=== PATIENT | male | born 1960 | race Caucasian/White ===

== ENCOUNTER → 2016-05-31 | Outpatient (CLI) | payer BC ==
[~2016-05-31] VITALS: Ht 182.9 cm; Wt 131.5 kg
[~2016-05-31] MED LIST: /WARF25TA PO; ACET50TA PO; ASPI1TAB24 PO; CIALIS PO; ENAL20TA PO; ENALAPRIL PO; GLIM4TAB PO; GLIMEPIRIDE PO; INVO300T PO; JANU100T PO; JANUVIA PO; LEVE1INJ5 SC; LEVEINJ SC; METF1000 PO; METFORMIN PO; NS 1,000 ML IV SCH; PERC7.5T12 PO; PRAV80TA PO; PRAVASTATIN PO; PROPOFOL 200 MG/20 ML VIAL As Ordered ONE
[2016-05-31 08:48] VITALS: BP 115/73
--- NOTE | 2016-05-31 08:55 | ROOR ---
Patient Name: Harpreet Jung Procedure Date: 05/31/2016 8:20 AM Date of : 1960 Age: 55 Room: [facility] Gender: Male Note Status: Finalized Procedure: Colonoscopy to Cecum + Cold Snare Polypectomy + Hemoclip Indications: Screening for colorectal malignant neoplasm Providers: Dony Downing MD Referring MD: ZAMZAM CUMMINGS JR, MD Requesting Provider: Medicines: Monitored Anesthesia Care Complications: No immediate complications. Procedure: Pre-Anesthesia Assessment: - The heart rate, respiratory rate, oxygen saturations, blood pressure, adequacy of pulmonary ventilation, and response to care were monitored throughout the procedure. The Colonoscope was introduced through the anus and advanced to the cecum, identified by appendiceal orifice and ileocecal valve. The colonoscopy was performed without difficulty. The patient tolerated the procedure well. The quality of the bowel preparation was good. Findings: The perianal and digital rectal examinations were normal. Non-bleeding internal hemorrhoids were found during retroflexion. The hemorrhoids were small and Grade I (internal hemorrhoids that do not prolapse). Scattered small-mouthed diverticula were found in the recto-sigmoid colon, sigmoid colon and descending colon. A small polyp was found at 60 cm proximal to the anus. The polyp was sessile. The polyp was removed with a cold snare. Resection and retrieval were complete. To prevent bleeding after the polypectomy, one hemostatic clip was successfully placed (MR conditional). There was no bleeding at the end of the procedure. The exam was otherwise without abnormality on direct and retroflexion views. Impression: - Non-bleeding internal hemorrhoids. - Diverticulosis in the recto-sigmoid colon, in the sigmoid colon and in the descending colon. - One small polyp at 60 cm proximal to the anus, removed with a cold snare. Resected and retrieved. Clip (MR conditional) was placed. - The examination was otherwise normal on direct and retroflexion views. - The exam was otherwise normal to the cecum. Recommendation: - Patient has a contact number available for emergencies. The signs and symptoms of potential delayed complications were discussed with the patient. Return to normal activities tomorrow. Written discharge instructions were provided to the patient. - High fiber diet. - Discharge patient to home. - Continue present medications. - Await pathology results. - Telephone GI clinic for pathology results in 1 week. - Repeat colonoscopy in 5 years for surveillance based on pathology results. - Return to referring physician. - The findings and recommendations were discussed with the patient's family. Dony Downing MD Dony Downing MD 05/31/2016 8:55:29 AM This report has been signed electronically. Number of Addenda: 0 Note Initiated On: 05/31/2016 8:20 AM Estimated Blood Loss: Estimated blood loss: none.
== END | disposition home or self-care (01) ==
LOC: M OPP 07:06
PROVIDERS: ATTEND Internal Medicine Gastroenterology
DX: Z12.11 Encounter for screening for malignant neoplasm of colon (principal); K64.0 First degree hemorrhoids; K57.30 Diverticulosis of large intestine without perforation or abscess without bleeding; D12.4 Benign neoplasm of descending colon; I10 Essential (primary) hypertension; E78.00 Pure hypercholesterolemia, unspecified; E11.9 Type 2 diabetes mellitus without complications; M19.90 Unspecified osteoarthritis, unspecified site; G47.30 Sleep apnea, unspecified; Z79.899 Other long term (current) drug therapy; Z79.82 Long term (current) use of aspirin; Z79.84 Long term (current) use of oral hypoglycemic drugs; Z88.1 Allergy status to other antibiotic agents

== ENCOUNTER 2016-11-04 08:33 | Emergency (ER) | payer BC ==
[~2016-11-04] VITALS: Ht 182.9 cm; Wt 130.4 kg
[~2016-11-04 08:33] MED LIST changes: +ASPI-161 PO; -ASPI1TAB24 PO; -METF1000 PO; +METF10004 PO; -NS 1,000 ML IV SCH; -PROPOFOL 200 MG/20 ML VIAL As Ordered ONE
[2016-11-04] MEDS ORDERED: CIAL20TA PO (09:00)
[2016-11-04] MEDS ORDERED: NS 500 ML IV ONE (09:00)
[2016-11-04] MEDS ORDERED: fentaNYL 100 MCG/2 ML INJECTION (J3010) IV ONE ×3 (09:00→12:30)
[2016-11-04] MEDS ORDERED: ISOVUE-370 76% 100ML VIAL (Q9967) As Ordered ONE (09:04)
[2016-11-04 09:21] LABS: BASO # 0.1 K/mm3 (0.0-0.2); BASO % 0.7 % (0.0-1.0); EOS # 0.4 K/mm3 (0.0-0.50); EOS % 3.9 % (0.0-3.0); LARGE UNSTAINED CELL # 0.4 K/mm3 (0.0-0.4); LARGE UNSTAINED CELL % 3.7 % (0.0-4.0); MEAN CORPUSCULAR HEMOGLOBIN 28.4 pg (27.0-33.0); MEAN CORPUSCULAR HGB CONC 34.5 g/dl (32.0-36.5); MEAN CORPUSCULAR VOLUME 82.3 fl (80.0-96.0); MONO # 0.5 K/mm3 (0.0-0.8); MONO % 5.7 % (0.0-5.0); NEUTROPHILS # 6.2 K/mm3 (1.8-7.7); PLATELET COUNT, AUTOMATED 268 k/mm3 (150-450); RED CELL DISTRIBUTION WIDTH 14.6 % (11.5-14.5); WHITE BLOOD COUNT 9.6 K/mm3 (4.0-10.0)
[2016-11-04 09:22] LABS: ADD MORPHOLOGY? NO
[2016-11-04 09:23] LABS: ALBUMIN 3.9 GM/DL (3.2-5.2); ALBUMIN/GLOBULIN RATIO 1.08 (1.00-1.93); ALKALINE PHOSPHATASE 46 U/L (45-117); ALT/SGPT 26 U/L (12-78); ANION GAP 10 MEQ/L (8-16); AST/SGOT 18 U/L (15-37); BILIRUBIN,DIRECT 0.1 MG/DL (0.0-0.2); BILIRUBIN,TOTAL 0.4 MG/DL (0.2-1.0); BLOOD UREA NITROGEN 21 MG/DL (7-18); CALCIUM LEVEL 8.9 MG/DL (8.5-10.1); CARBON DIOXIDE LEVEL 23 MEQ/L (21-32); CHLORIDE LEVEL 109 MEQ/L (98-107); CREATININE FOR GFR 0.98 MG/DL (0.70-1.30); GLOMERULAR FILTRATION RATE > 60.0 (>56); GLUCOSE, FASTING 227 MG/DL (70-105); POTASSIUM SERUM 4.8 MEQ/L (3.5-5.1); SODIUM LEVEL 142 MEQ/L (136-145); TOTAL PROTEIN 7.5 GM/DL (6.4-8.2)
[2016-11-04] MEDS ORDERED: LIDOCAINE 1% MDV 20ML VIAL IM ONE (10:15)
[2016-11-04] MEDS ORDERED: ceFAZolin SOD 1 GM in D5W MINI-BAG PLUS 50 ML IV ONE (10:30)
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
--- NOTE | 2016-11-04 11:24 | REP ---
LEFT KNEE: Two views of the left knee are performed. There is a total knee prosthesis. There is no fracture or dislocation. There is a moderate joint effusion. IMPRESSION: No fracture or dislocation. Moderate joint effusion. Signed by Kelvin Saldana MD 11/04/2016 11:57 A
--- NOTE | 2016-11-04 11:25 | REP ---
AP CHEST, SINGLE VIEW: There is no evidence of acute infiltrate. No pleural effusion is seen. The heart is normal in size. The mediastinal silhouette is unremarkable. The visualized osseous structures are intact. IMPRESSION: No acute pulmonary disease. Signed by Kelvin Saldana MD 11/04/2016 11:58 A
--- NOTE | 2016-11-04 11:25 | REP ---
PELVIS: AP view of the pelvis is performed. There is no fracture or dislocation. Hypertrophic spurring is seen at the left anterior inferior iliac spine at the insertion of the rectus femoris muscle. There are mild degenerative changes at the hips. IMPRESSION: No acute fracture or dislocation. Signed by Kelvin Saldana MD 11/04/2016 11:58 A
[2016-11-04] MEDS ORDERED: MORPHINE 4 MG/ML 1ML SYRINGE As Ordered ONE (11:48)
--- NOTE | 2016-11-04 11:49 | REP ---
LEFT ANKLE: Two views. HISTORY: Post reduction. FINDINGS: AP and lateral views of the left ankle are obtained in overlying splint. The ankle joint is been reduced. An obliquely oriented distal fibular fracture is seen much improved in alignment nearly anatomic. Ankle mortise appears intact. A posterior tibial malleolar chip fracture is seen on the lateral radiograph. Soft tissue swelling and irregularity is seen. Achilles calcaneal spurring noted. IMPRESSION: Ankle dislocation is reduced. Signed by Jaime Garcia MD 11/04/2016 11:53 A
[2016-11-04] MEDS ORDERED: MORPHINE 4 MG/ML 1ML SYRINGE IV ONE (12:00)
[2016-11-04] MEDS ORDERED: DERMABOND TOPICAL SKIN ADHESIVE TOP ONE (12:00)
[2016-11-04 13:22] VITALS: BP 107/55
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
== END 2016-11-04 13:23 | disposition short-term general hospital (02) ==
LOC: M ED 08:33 → EDBD 08:33 → M ED 13:23
DX: S82.892B Other fracture of left lower leg, initial encounter for open fracture type I or II (principal); S01.112A Laceration without foreign body of left eyelid and periocular area, initial encounter; S01.412A Laceration without foreign body of left cheek and temporomandibular area, initial encounter; V20.4XXA Motorcycle driver injured in collision with pedestrian or animal in traffic accident, initial encounter; Y92.410 Unspecified street and highway as the place of occurrence of the external cause; Y93.89 Activity, other specified; Y99.8 Other external cause status; E11.9 Type 2 diabetes mellitus without complications; I10 Essential (primary) hypertension; E78.5 Hyperlipidemia, unspecified; N52.9 Male erectile dysfunction, unspecified; Z79.899 Other long term (current) drug therapy; Z79.84 Long term (current) use of oral hypoglycemic drugs; Z79.82 Long term (current) use of aspirin; Z88.1 Allergy status to other antibiotic agents; F12.20 Cannabis dependence, uncomplicated
CPT/HCPCS: 12014; 27768; 70450; 70486; 71010; 71260; 72125; 72170; 73560; 73600; 73610; 73620; 74177; 80048; 80076; 81001; 83690; 85025; 85730; 96361; 96365; 96366; 96375; 96376; 99291; J0690; J3010; Q9967

== ENCOUNTER 2018-03-25 15:49 | Emergency (ER) | payer BC, MEDICAID, SELFPAY ==
[~2018-03-25] VITALS: Ht 182.9 cm; Wt 118.6 kg
[~2018-03-25 15:49] MED LIST changes: +CIAL20TA PO
[2018-03-25] MEDS ORDERED: INSUH10VL SC (15:58)
[2018-03-25] MEDS ORDERED: KETO10TAB PO (15:58)
[2018-03-25] MEDS ORDERED: NS 1,000 ML IV ONE (17:30)
[2018-03-25 17:54] LABS: BASO # 0.1 10^3/uL (0.0-0.2); BASO % 0.6 % (0.0-1.0); EOS % 0.1 % (0.0-3.0); HEMATOCRIT 42.7 % (42.0-52.0); HEMOGLOBIN 13.9 g/dl (13.5-17.5); LYMPH # 1.7 10^3/uL (1.5-4.5); LYMPH % 17.6 % (24.0-44.0); MEAN CORPUSCULAR HEMOGLOBIN 26.3 pg (27.0-33.0); MEAN CORPUSCULAR HGB CONC 32.6 g/dl (32.0-36.5); MEAN CORPUSCULAR VOLUME 80.7 fl (80.0-96.0); MONO # 0.9 10^3/uL (0.0-0.8); MONO % 9.6 % (0.0-5.0); NEUTROPHILS # 6.7 10^3/uL (1.8-7.7); NEUTROPHILS % 71.8 % (36.0-66.0); PLATELET COUNT, AUTOMATED 258 10^3/uL (150-450); RED BLOOD COUNT 5.29 10^6/uL (4.30-6.10); WHITE BLOOD COUNT 9.4 10^3/uL (4.0-10.0)
[2018-03-25 18:15] LABS: ERYTHROCYTE SEDIMENTATION RATE 13 mm/hr (0-20)
[2018-03-25 18:21] LABS: ALBUMIN 3.8 GM/DL (3.2-5.2); ALT/SGPT 20 U/L (12-78); BILIRUBIN,DIRECT 0.1 MG/DL (0.0-0.2); BILIRUBIN,TOTAL 0.5 MG/DL (0.2-1.0); BLOOD UREA NITROGEN 14 MG/DL (7-18); CALCIUM LEVEL 8.6 MG/DL (8.5-10.1); CARBON DIOXIDE LEVEL 24 MEQ/L (21-32); CHLORIDE LEVEL 101 MEQ/L (98-107); CREATININE FOR GFR 0.92 MG/DL (0.70-1.30); GLOMERULAR FILTRATION RATE > 60.0 (>56); GLUCOSE, FASTING 254 MG/DL (70-100); POTASSIUM SERUM 4.6 MEQ/L (3.5-5.1); SODIUM LEVEL 136 MEQ/L (136-145); TOTAL PROTEIN 8.1 GM/DL (6.4-8.2)
[2018-03-25] MEDS ORDERED: MORPHINE 4 MG/ML 1ML VIAL/SYRINGE (J2270) IV ONE (18:45)
[2018-03-25] MEDS ORDERED: PERCOCET 5MG/325MG TAB PO ONE (20:00)
--- NOTE | 2018-03-25 20:05 | REPVR ---
EXAM: XR Left Ankle Complete, 3 or more Views EXAM DATE/TIME: 03/25/2018 5:24 PM CLINICAL HISTORY: 57 years old, male; Pain; Ankle; Left; Additional info: Swelling/pain over hardware TECHNIQUE: XR Left ankle 3 or more views. COMPARISON: CR Ankle, Ap-Lat 11/04/2016 11:16 AM FINDINGS: There is generalized swelling of the ankle soft tissues with focal swelling of the lateral aspect of the ankle adjacent to a small fragment of metallic cortical plate located adjacent to the distal fibula metaphysis. There is an old healed internally fixed fracture deformity of the distal fibula. This is fixed by cortical plate and multiple screws. This instrumentation is unremarkable. There is severe arthritis of the ankle joint with subchondral bone lucencies within the talus dome and tibial plafond as well as the lateral malleolus articular surface. Differential diagnosis includes infectious arthritis, inflammatory arthritis as well as post traumatic arthritis. There are findings suggestive of a tiny ankle joint effusion. There are degenerative arthritic changes within the calcaneocuboid and joints of the midfoot. No acute fracture is identified. There are vascular calcifications within the soft tissues of the ankle and foot. IMPRESSION: 1. Focal soft tissue swelling within the lateral ankle adjacent to a fragment of metallic cortical plate which is located adjacent to the distal fibula metaphysis. 2. Old healed internally fixed fracture deformity of the distal fibula. 3. 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 Differential diagnosis includes infectious, inflammatory as well as posttraumatic arthritis. Electronically signed by: Catalino Campa On 03/25/2018 20:04:26 PM
[2018-03-25] MEDS ORDERED: PERC5TAB12 PO (20:44)
[2018-03-25] MEDS ORDERED: CLEO300C2 PO (20:44)
[2018-03-25 20:52] VITALS: BP 149/79
[2018-03-25] MEDS ORDERED: CLINDAMYCIN 150 MG CAP PO ONE (21:00)
[2018-03-25] MEDS ORDERED: OXYCODONE/APAP 5MG/325MG(BULK FOR ED) 1 TABLET PO ONE (21:00)
== END 2018-03-25 21:00 | disposition home or self-care (01) ==
LOC: M ED 15:49
DX: L03.116 Cellulitis of left lower limb (principal); M19.172 Post-traumatic osteoarthritis, left ankle and foot; T84.9XXA Unspecified complication of internal orthopedic prosthetic device, implant and graft, initial encounter; X58.XXXA Exposure to other specified factors, initial encounter; Y92.89 Other specified places as the place of occurrence of the external cause; E11.9 Type 2 diabetes mellitus without complications; I10 Essential (primary) hypertension; E78.5 Hyperlipidemia, unspecified; G47.33 Obstructive sleep apnea (adult) (pediatric); Z79.899 Other long term (current) drug therapy; Z79.82 Long term (current) use of aspirin; Z79.4 Long term (current) use of insulin; Z88.1 Allergy status to other antibiotic agents; Z87.891 Personal history of nicotine dependence
CPT/HCPCS: 36415; 73610; 80048; 80076; 83605; 85025; 85652; 86140; 87040; 96361; 96374; 99284; J2270

== ENCOUNTER → 2018-04-16 | Outpatient (REF) | payer MEDICAID ==
[~2018-04-16] MED LIST changes: +CLEO300C2 PO; +INSUH10VL SC; +KETO10TAB PO; +PERC5TAB12 PO
[2018-04-16 14:18] LABS: BASO # 0.1 10^3/uL (0.0-0.2); BASO % 0.6 % (0.0-1.0); HEMOGLOBIN 12.5 g/dl (13.5-17.5); LYMPH % 24.9 % (24.0-44.0); MEAN CORPUSCULAR HEMOGLOBIN 26.1 pg (27.0-33.0); MEAN CORPUSCULAR HGB CONC 31.3 g/dl (32.0-36.5); MEAN CORPUSCULAR VOLUME 83.5 fl (80.0-96.0); MONO # 0.7 10^3/uL (0.0-0.8); MONO % 8.8 % (0.0-5.0); NEUTROPHILS # 5.2 10^3/uL (1.8-7.7); NEUTROPHILS % 65.4 % (36.0-66.0); PLATELET COUNT, AUTOMATED 390 10^3/uL (150-450); RED BLOOD COUNT 4.79 10^6/uL (4.30-6.10)
[2018-04-16 14:34] LABS: ALBUMIN 3.5 GM/DL (3.2-5.2); ALT/SGPT 31 U/L (12-78); BILIRUBIN,TOTAL 0.2 MG/DL (0.2-1.0); BLOOD UREA NITROGEN 18 MG/DL (7-18); C REACTIVE PROTEIN QUANTITATIV 0.94 MG/DL (0.00-0.30); CALCIUM LEVEL 9.1 MG/DL (8.5-10.1); CARBON DIOXIDE LEVEL 26 MEQ/L (21-32); CHLORIDE LEVEL 108 MEQ/L (98-107); GLOMERULAR FILTRATION RATE > 60.0 (>56); GLUCOSE, FASTING 103 MG/DL (70-100); POTASSIUM SERUM 4.7 MEQ/L (3.5-5.1); SODIUM LEVEL 143 MEQ/L (136-145); TOTAL PROTEIN 7.1 GM/DL (6.4-8.2)
[2018-04-16 15:14] LABS: ERYTHROCYTE SEDIMENTATION RATE 56 mm/hr (0-20)
== END ==
LOC: M LAB REF 13:02
PROVIDERS: ATTEND Internal Medicine Infectious Disease
DX: T81.40XA Infection following a procedure, unspecified, initial encounter (principal); B96.89 Other specified bacterial agents as the cause of diseases classified elsewhere

== ENCOUNTER → 2018-04-23 | Outpatient (REF) | payer MEDICAID ==
[2018-04-23 14:23] LABS: BASO # 0.1 10^3/uL (0.0-0.2); BASO % 0.7 % (0.0-1.0); EOS % 0.3 % (0.0-3.0); HEMATOCRIT 40.7 % (42.0-52.0); HEMOGLOBIN 12.9 g/dl (13.5-17.5); LYMPH # 2.2 10^3/uL (1.5-4.5); LYMPH % 29.5 % (24.0-44.0); MEAN CORPUSCULAR HEMOGLOBIN 26.2 pg (27.0-33.0); MEAN CORPUSCULAR HGB CONC 31.7 g/dl (32.0-36.5); MEAN CORPUSCULAR VOLUME 82.6 fl (80.0-96.0); MONO # 0.5 10^3/uL (0.0-0.8); MONO % 6.8 % (0.0-5.0); NEUTROPHILS # 4.7 10^3/uL (1.8-7.7); NEUTROPHILS % 62.4 % (36.0-66.0); PLATELET COUNT, AUTOMATED 269 10^3/uL (150-450); RED BLOOD COUNT 4.93 10^6/uL (4.30-6.10); WHITE BLOOD COUNT 7.5 10^3/uL (4.0-10.0)
[2018-04-23 14:45] LABS: ALBUMIN 3.7 GM/DL (3.2-5.2); ALT/SGPT 30 U/L (12-78); BILIRUBIN,TOTAL 0.2 MG/DL (0.2-1.0); BLOOD UREA NITROGEN 18 MG/DL (7-18); CALCIUM LEVEL 8.6 MG/DL (8.5-10.1); CARBON DIOXIDE LEVEL 24 MEQ/L (21-32); CHLORIDE LEVEL 110 MEQ/L (98-107); CREATININE FOR GFR 0.94 MG/DL (0.70-1.30); GLOMERULAR FILTRATION RATE > 60.0 (>56); GLUCOSE, FASTING 153 MG/DL (70-100); POTASSIUM SERUM 4.5 MEQ/L (3.5-5.1); SODIUM LEVEL 140 MEQ/L (136-145); TOTAL PROTEIN 7.1 GM/DL (6.4-8.2)
[2018-04-23 14:46] LABS: ERYTHROCYTE SEDIMENTATION RATE 32 mm/hr (0-20)
== END ==
LOC: M LAB REF 13:24
PROVIDERS: ATTEND Internal Medicine Infectious Disease
DX: T81.40XA Infection following a procedure, unspecified, initial encounter (principal); B96.89 Other specified bacterial agents as the cause of diseases classified elsewhere

== ENCOUNTER → 2018-04-30 | Outpatient (REF) | payer MEDICAID ==
[2018-04-30 13:49] LABS: BASO # 0.1 10^3/uL (0.0-0.2); EOS % 0.1 % (0.0-3.0); HEMOGLOBIN 12.8 g/dl (13.5-17.5); LYMPH # 1.9 10^3/uL (1.5-4.5); LYMPH % 28.2 % (24.0-44.0); MEAN CORPUSCULAR HEMOGLOBIN 26.3 pg (27.0-33.0); MEAN CORPUSCULAR VOLUME 82.3 fl (80.0-96.0); MONO # 0.6 10^3/uL (0.0-0.8); MONO % 8.9 % (0.0-5.0); NEUTROPHILS # 4.2 10^3/uL (1.8-7.7); NEUTROPHILS % 61.4 % (36.0-66.0); PLATELET COUNT, AUTOMATED 221 10^3/uL (150-450); RED BLOOD COUNT 4.86 10^6/uL (4.30-6.10); WHITE BLOOD COUNT 6.9 10^3/uL (4.0-10.0)
[2018-04-30 14:08] LABS: ALBUMIN 3.7 GM/DL (3.2-5.2); ALT/SGPT 27 U/L (12-78); BILIRUBIN,TOTAL 0.2 MG/DL (0.2-1.0); BLOOD UREA NITROGEN 21 MG/DL (7-18); C REACTIVE PROTEIN QUANTITATIV 0.68 MG/DL (0.00-0.30); CALCIUM LEVEL 8.8 MG/DL (8.5-10.1); CARBON DIOXIDE LEVEL 24 MEQ/L (21-32); CHLORIDE LEVEL 107 MEQ/L (98-107); CREATININE FOR GFR 0.84 MG/DL (0.70-1.30); GLOMERULAR FILTRATION RATE > 60.0 (>56); GLUCOSE, FASTING 155 MG/DL (70-100); POTASSIUM SERUM 4.4 MEQ/L (3.5-5.1); SODIUM LEVEL 138 MEQ/L (136-145)
[2018-04-30 14:16] LABS: ERYTHROCYTE SEDIMENTATION RATE 25 mm/hr (0-20)
== END ==
LOC: M LAB REF 13:00
PROVIDERS: ATTEND Internal Medicine Infectious Disease
DX: B96.89 Other specified bacterial agents as the cause of diseases classified elsewhere (principal); T81.40XA Infection following a procedure, unspecified, initial encounter

== ENCOUNTER → 2018-05-07 | Outpatient (REF) | payer MEDICAID ==
[2018-05-07 15:41] LABS: BASO # 0.1 10^3/uL (0.0-0.2); HEMATOCRIT 40.6 % (42.0-52.0); HEMOGLOBIN 12.9 g/dl (13.5-17.5); LYMPH # 1.6 10^3/uL (1.5-4.5); MEAN CORPUSCULAR HEMOGLOBIN 26.3 pg (27.0-33.0); MEAN CORPUSCULAR HGB CONC 31.8 g/dl (32.0-36.5); MEAN CORPUSCULAR VOLUME 82.7 fl (80.0-96.0); MONO # 0.6 10^3/uL (0.0-0.8); MONO % 9.9 % (0.0-5.0); NEUTROPHILS % 63.9 % (36.0-66.0); PLATELET COUNT, AUTOMATED 225 10^3/uL (150-450); RED BLOOD COUNT 4.91 10^6/uL (4.30-6.10); WHITE BLOOD COUNT 6.2 10^3/uL (4.0-10.0)
[2018-05-07 16:02] LABS: ALBUMIN 3.7 GM/DL (3.2-5.2); ALT/SGPT 33 U/L (12-78); BILIRUBIN,TOTAL 0.4 MG/DL (0.2-1.0); BLOOD UREA NITROGEN 15 MG/DL (7-18); C REACTIVE PROTEIN QUANTITATIV 1.15 MG/DL (0.00-0.30); CALCIUM LEVEL 8.5 MG/DL (8.5-10.1); CARBON DIOXIDE LEVEL 25 MEQ/L (21-32); CHLORIDE LEVEL 108 MEQ/L (98-107); CREATININE FOR GFR 0.86 MG/DL (0.70-1.30); GLOMERULAR FILTRATION RATE > 60.0 (>56); GLUCOSE, FASTING 90 MG/DL (70-100); POTASSIUM SERUM 4.4 MEQ/L (3.5-5.1); SODIUM LEVEL 141 MEQ/L (136-145); TOTAL PROTEIN 7.3 GM/DL (6.4-8.2)
[2018-05-07 16:09] LABS: ERYTHROCYTE SEDIMENTATION RATE 20 mm/hr (0-20)
== END ==
LOC: M LAB REF 14:50
PROVIDERS: ATTEND Internal Medicine Infectious Disease
DX: T81.40XA Infection following a procedure, unspecified, initial encounter (principal); B96.89 Other specified bacterial agents as the cause of diseases classified elsewhere

== ENCOUNTER → 2019-05-28 | Outpatient (CLI) | payer OTHER ==
[~2019-05-28] MED LIST changes: -/WARF25TA PO; -ACET50TA PO; +COUM1TAB18 PO; -GLIM4TAB PO; +GLIM4TAB5 PO; +MAPA500T17 PO
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
== END ==
LOC: M PAIN 13:30
PROVIDERS: ATTEND Family Medicine
DX: M25.562 Pain in left knee (principal); M79.672 Pain in left foot; E11.9 Type 2 diabetes mellitus without complications; I10 Essential (primary) hypertension; Z79.82 Long term (current) use of aspirin; Z79.84 Long term (current) use of oral hypoglycemic drugs; Z79.899 Other long term (current) drug therapy; Z87.891 Personal history of nicotine dependence; Z88.8 Allergy status to other drugs, medicaments and biological substances

== ENCOUNTER → 2019-06-27 | Outpatient (CLI) | payer OTHER ==
--- NOTE | 2019-07-03 03:24 | ECWPNPC ---
PATIENT NAME: LIUDMILA BETANCOURT : 1960 GENDER: MALE VISIT DATE: 06/27/2019 DISCHARGE DATE: 06/27/19 1026 VISIT LOCKED DATE TIME: PHYSICIAN: JANIE CAMPBELL RESOURCE: JANIE CAMPBELL REASON FOR APPOINTMENT 1. LEFT KNEE AND FOOT PAIN, NEW MEDICATION HISTORY OF PRESENT ILLNESS HISTORY OF PRESENT ILLNESS: PAIN THE PATIENT DESCRIBES THE PAIN... 58-YEAR-OLD MALE IN FOR CHRONIC PAIN FOLLOW-UP. AT LAST CLINIC VISIT HE WAS STARTED ON TRAMADOL AND FEELS THIS MEDICATION WAS HELPFUL HOWEVER IT WAS NOT CARRYING HIM THROUGHOUT THE DAY. HE RATES HIS PAIN CURRENTLY AT A 4 OUT OF 10 ACHING AND STABBING. FALL RISK SCREENING: SCREENING :NO FALLS REPORTED IN THE LAST YEAR CURRENT MEDICATIONS TAKING METFORMIN HCL 1000 MG TABLET 1 TABLET WITH A MEAL ORALLY BID TAKING ASPIR-81 1 TAB ORALLY DAILY TAKING BASAGLAR KWIKPEN 100 UNIT/ML SOLUTION PEN-INJECTOR DIRECTED SUBCUTANEOUS TAKING ENALAPRIL MALEATE 20 MG TABLET 1 TABLET ORALLY ONCE A DAY TAKING PRAVASTATIN SODIUM 80 MG TABLET 1 TABLET ORALLY ONCE A DAY TAKING TRAMADOL HCL 50 MG TABLET 1 TABLET NEEDED ORALLY ONCE A DAY MEDICATION LIST REVIEWED AND RECONCILED WITH THE PATIENT PAST MEDICAL HISTORY DIABETIC HYPERLIPIDIMIA HYPERTENSION ALLERGIES CYPROHEPTADINE HCL: HIVES - ALLERGY SURGICAL HISTORY LEFT KNEE RECONSTRUCTION 02/1980 ARTHROSCOPIC REPAIRS, LEFT & RIGHT KNEE 1982,1989,1994 ARTHROSCOPIC REPAIRS WRIST 2009 RIGHT KNEE REPLACEMENT 2014 SCREWS REMOVED, LEFT KNEE 2018 REMOVAL OF PLATE AND SCREWS FROM LEFT ANKLE 2019 FAMILY HISTORY FATHER: MOTHER: 75 YRS SIBLINGS: ALIVE 2 BROTHER(S) . 3DAUGHTER(S) . 2 DAUGHTER HAVE THYROID. SOCIAL HISTORY GENERAL: TOBACCO USE ARE YOU A:FORMER SMOKER HOW LONG HAS IT BEEN SINCE YOU LAST SMOKED?> 10 YEARS SMOKING CESSATION INFORMATION GIVEN05/28/2019 LATEX QUESTIONNAIRE LATEX ALLERGY : HAVE YOU EVER DEVELOPED ANY TYPE OF REACTION AFTER HANDLING LATEX PRODUCTS SUCH RUBBER GLOVES, CONDOMS, DIAPHRAGMS, BALLOONS, SOCKS, OR UNDERWEAR?NO LATEX ALLERGY : HAVE YOU EVER DEVELOPED ANY TYPE OF REACTION DURING OR AFTER DENTAL APPOINTMENT, VAGINAL/RECTAL EXAMINATION, SURGICAL PROCEDURE, OR ANY OTHER EXPOSURE?NO DATE ASKED : 05/28/2019 LATEX RISK : HAVE YOU EVER HAD ANY DIFFICULTY BREATHING OR HIVES AFTER EATING OR HANDLING ANY FRUITS, OR VEGETABLES; SUCH KIWI, BANANAS, STONE FRUITS, OR CHESTNUTSNO LATEX RISK : DO YOU HAVE A PREVIOUS PERSONAL HISTORY OF MORE THAN NINE SURGERIES, SPINA BIFIDA, OR REPEATED CATHERIZATIONS? NO LATEX RISK : ARE YOU FREQUENTLY EXPOSED TO LATEX PRODUCTS IN YOUR OCCUPATION?NO ALCOHOL SCREENING DID YOU HAVE A DRINK CONTAINING ALCOHOL IN THE PAST YEAR?YES HOW MANY DRINKS DID YOU HAVE ON A TYPICAL DAY WHEN YOU WERE DRINKING IN THE PAST YEAR?1 OR 2 (0 POINTS) HOW OFTEN DID YOU HAVE A DRINK CONTAINING ALCOHOL IN THE PAST YEAR?MONTHLY OR LESS (1 POINT) POINTS1 INTERPRETATIONNEGATIVE RECREATIONAL DRUG USE DRUG USE?YES HOW OFTEN AND HOW MUCH? ONCE A MONTH, MARIJUANA CAFFEINE CAFFEINE USE?YES 2 CUP DAILY CONGREGATION [id number] FAITH LANGUAGE LANGUAGES SPOKEN:BELARUSIAN LEARNING BARRIERS / SPECIAL NEEDS CHANGE FROM LAST VISIT?NO BARRIERS TO LEARNING?NO HEARING IMPAIRED?NO VISION IMPAIRED?YES COGNITIVELY IMPAIRED?NO :CORRECTIVE LENSES READINESS TO LEARN?YES LEARNING PREFERENCES?NO LEARNING CAPABILITIES PRESENT?YES EMOTIONAL BARRIERS?NO SPECIAL DEVICES?YES :OTHER CRUTCHES PUBLIC ADMINISTRATION TEACHER NEEDED?NO DOMESTIC VIOLENCE DO YOU FEEL SAFE IN YOUR ENVIRONMENT?YES OCCUPATION: DISABLED. MARITAL STATUS: . OTHERS AT HOME: SPOUSE. NEW PATIENT PAIN DIARY PATIENT DESCRIBES PAIN :ACHING, HAVE IT ALL THE TIME, IT COMES AND GOES, STABBING FROM 0-10, WHAT LEVEL IS YOUR PAIN TODAY?4 PRECIPITATING FACTORS SITTING GIVES ACHING PAIN, PAIN COMES AND GOES. WALKING GIVES STABBING PAIN, PAIN IS CONSTANT. ALLEVIATING FACTORS NOTHING IMPACT ON FUNCTION YES PAIN CLINIC PFS, CLERGY, PUBLIC HEALTH REFERRALS PFS REFERRAL NEEDED?NO CLERGY REFERRAL NEEDED?NO PUBLIC HEALTH REFERRAL NEEDED?NO HAS THE PATIENT BEEN EDUCATED REGARDING HIS/HER PLAN OF CARE?YES HAS THE PATIENT BEEN EDUCATED REGARDING PAIN, THE RISK FOR PAIN, THE IMPORTANCE OF EFFECTIVE PAIN MANAGEMENT, AND THE PAIN ASSESSMENT PROCESS?YES ADVANCE DIRECTIVE ADVANCE DIRECTIVE DISCUSSED WITH PATIENT:YES PT. DAUGHTER MELISSA IS HIS HEALTH CARE PROXY [phone] HOSPITALIZATION/MAJOR DIAGNOSTIC PROCEDURE NOTED ABOVE REVIEW OF SYSTEMS REVIEWED BY: PROVIDER: CARMEN CAMPBELL TECHNICAL ADJUSTER-C . CONSTITUTIONAL: ANY CHANGE IN YOUR MEDICAL CONDITION? NO . CHILLS NO . FEVER NO . INFECTION: DO YOU HAVE NEW INFECTIONS? NO . DO YOU HAVE HISTORY OF MRSA? NO . MUSCULOSKELETAL: ANY NEW PATTERNS OF PAIN OR NUMBNESS? NO . GASTROENTEROLOGY: ANY NEW CHANGE IN BOWEL CONTROL? NO . GENITOURINARY: ANY NEW CHANGE IN BLADDER CONTROL? NO . IS THERE A CHANCE YOU COULD BE ? NO . HEMATOLOGY/LYMPH: DO YOU TAKE ANY BLOOD THINNERS? (FOR EXAMPLE- COUMADIN, PLAVIX, AGGRENOX, PLATEL, PRADAXA, OR XARELTO) NO . WHEN WAS YOUR LAST DOSE? DATE: TIME: . NEUROLOGY: HAVE YOU FALLEN IN THE PAST 12 MONTHS? NO . ANY NEW EXTREMITY NUMBNESS OR WEAKNESS? NO . CARDIOLOGY: DO YOU HAVE A PACEMAKER OR DEFIBRILLATOR? NO . RESPIRATORY: HAVE YOU BEEN SICK IN THE PAST WEEK? NO . FEVER NO . FLU LIKE SYMPTOMS? NO . COUGH NO . INTEGUMENTARY: DO YOU HAVE ANY RASHES OR OPEN SORES? YES, SORE TO LEFT KNEE, S/P OVEN DOOR SLAMMED ON KNEE . ALLERGIC/IMMUNO: ARE YOU ALLERGIC TO IV DYE? NO . ANY NEW ALLERGIES? NO . PSYCHIATRIC: DO YOU HAVE THOUGHTS OF HURTING YOURSELF OR SOMEONE ELSE? NO . ARE YOU ABUSED, NEGLECTED, OR IN AN UNSAFE ENVIRONMENT? NO . ENDOCRINOLOGY: ARE YOU DIABETIC? YES . OTHER: DO YOU NEED ANY PRESCRIPTIONS? NO . IF YES, PLEASE LIST: ____ . ANY NEW PROBLEMS WITH YOUR MEDICATIONS? NO . WHEN DID YOU LAST EAT? ____ . WHEN DID YOU LAST DRINK? ____ . WHAT DID YOU LAST DRINK? ____ . NAME OF PERSON DRIVING YOU HOME? ____ . DO YOU HAVE ANY OTHER QUESTIONS OR CONCERNS NO . VITAL SIGNS WT 266.6 LBS, HT 64 IN, BMI 45.76 INDEX, BP 118/90 MM HG, HR 103 /MIN, RR 18 /MIN, TEMP 96.1 F, OXYGEN SAT % 97%, SAFE IN ENV? (Y/N) Y, NA INITIALS AW 0931, REVIEWED BY: EM. EXAMINATION GENERAL EXAMINATION: GENERALNO ACUTE DISTRESS, WELL NOURISHED AND HYDRATED. PSYCHAPPROPRIATE MOOD AND AFFECT . LUNGS:CLEAR TO AUSCULTATION BILATERALLY, NO WHEEZES, RHONCHI, RALES. HEART:NO MURMURS, REGULAR RATE AND RHYTHM. ASSESSMENTS PAIN IN LEFT KNEE - M25.562 (PRIMARY) PAIN IN LEFT FOOT - M79.672 TREATMENT PAIN IN LEFT KNEE CLINICAL NOTES: 58-YEAR-OLD MALE IN FOR CHRONIC PAIN FOLLOW-UP. GIVEN PRESENTING SYMPTOMS AND RESULTS OF PHYSICAL EXAMINATION RECOMMENDED INCREASING TRAMADOL TO 2 TABS DAILY NEEDED FOR PAIN WITH FOLLOW-UP IN 2 MONTHS TO DETERMINE EFFICACY OF TREATMENT. PATIENT HAS EXPRESSED UNDERSTANDING OF AND WAS IN AGREEMENT WITH TREATMENT PLAN. GIVEN TIME TO ASK QUESTIONS AND EXPRESS CONCERNS., ISTOP REGISTRY REVIEWED AND DEMONSTRATES COMPLLIANCE. (REF # [id number]) BRINGS IN MEDICATIONS WHICH IS APPROPRIATE FOR WHAT WAS DISPENSED. RECENT URINE TOXICOLOGY REVIEWED. NO UNAUTHORIZED MEDICATIONS. NO ILLICIT SUBSTANCES AND PRESCRIBED MEDICATIONS WERE PRESENT. PROCEDURE CODES FA211 ESTABILISHED PATIENT [facility] CHARGE DISPOSITION & COMMUNICATION FOLLOW UP 2 MONTHS (REASON: LEFT KNEE AND FOOT PAIN) ELECTRONICALLY SIGNED BY FALGUNI BARR ON 07/02/2019 AT 08:44 AM EDT DISCLAIMER : THIS IS A VISIT SUMMARY EXTRACTED FROM THE [employer] CHART. IT IS NOT A COPY OF THE [employer] PROGRESS NOTE. TOÑITO
== END ==
LOC: M PAIN 09:30
PROVIDERS: ATTEND Family Medicine
DX: M25.562 Pain in left knee (principal); M79.672 Pain in left foot; G89.29 Other chronic pain; E11.9 Type 2 diabetes mellitus without complications; E78.5 Hyperlipidemia, unspecified; I10 Essential (primary) hypertension; Z96.651 Presence of right artificial knee joint; Z87.891 Personal history of nicotine dependence; Z88.8 Allergy status to other drugs, medicaments and biological substances; E66.01 Morbid (severe) obesity due to excess calories; Z68.42 Body mass index [BMI] 45.0-49.9, adult; Z79.82 Long term (current) use of aspirin; Z79.4 Long term (current) use of insulin; Z79.899 Other long term (current) drug therapy

== ENCOUNTER → 2019-07-30 | Outpatient (REF) | payer OTHER ==
[2019-07-30 13:34] LABS: PERCENT SATURATION 32.8 % (19.7-50.0)
[2019-08-01 06:42] LABS: IGASUB2 <3.5 mg/dL (73.2-301.2); IGASUB3 <0.5 mg/dL (13.4-97.9); IgA SERUM (part of Subclasses) < 5 mg/dL (90-386); TISSUE TRANSGLUTAMINASE IgA <2 U/mL (0-3)
== END ==
LOC: M LAB REF 12:21
PROVIDERS: ATTEND Internal Medicine
DX: E11.40 Type 2 diabetes mellitus with diabetic neuropathy, unspecified (principal)

== ENCOUNTER → 2019-08-31 | Outpatient (CLI) | payer OTHER ==
[~2019-08-31] MED LIST changes: +BASA100I SC; +PRAV80TA2 PO; +TRAM50TA2 PO
== END ==
LOC: M LABSMTC 08:56
PROVIDERS: ATTEND Anesthesiology
DX: Z11.59 Encounter for screening for other viral diseases (principal)
CPT/HCPCS: C9803; U0003

== ENCOUNTER 2019-09-03 10:57 | Day surgery (SDC) | payer OTHER ==
[~2019-09-03] VITALS: Ht 182.9 cm; Wt 129.7 kg
[~2019-09-03 10:57] MED LIST changes: +LIDOCAINE 2% 100MG/5ML SDV (FOR ANES.) As Ordered ONE; +NS 1,000 ML IV ONE; +propofoL 200 MG/20 ML VIAL As Ordered ONE
[2019-09-03] MEDS ORDERED: PHENYLephrine HCL 500 MCG/5 ML (100MCG/ML) SYRINGE (J2370) As Ordered ONE (12:37)
[2019-09-03] MEDS ORDERED: propofoL 200 MG/20 ML VIAL As Ordered ONE (12:41)
--- NOTE | 2019-09-03 12:59 | ROOR ---
Patient Name: Harpreet Jung Procedure Date: 09/03/2019 12:07 PM Date of : 1960 Age: 58 Room: [facility] Gender: Male Note Status: Finalized Procedure: Colonoscopy Indications: Change in bowel habits Providers: Pola Gandhi MD Referring MD: ZAMZAM CUMMINGS JR, MD Requesting Provider: Medicines: Monitored Anesthesia Care Complications: No immediate complications. Procedure: Pre-Anesthesia Assessment: - Prior to the procedure, a History and Physical was performed, and patient medications and allergies were reviewed. The patient is competent. The risks and benefits of the procedure and the sedation options and risks were discussed with the patient. All questions were answered and informed consent was obtained. Patient identification and proposed procedure were verified by the physician, the nurse and the anesthesiologist in the procedure room. Mental Status Examination: alert and oriented. Airway Examination: normal oropharyngeal airway and neck mobility. Respiratory Examination: clear to auscultation. CV Examination: normal. Prophylactic Antibiotics: The patient does not require prophylactic antibiotics. Prior Anticoagulants: The patient has taken no previous anticoagulant or antiplatelet agents. ASA Grade Assessment: II - A patient with mild systemic disease. After reviewing the risks and benefits, the patient was deemed in satisfactory condition to undergo the procedure. The anesthesia plan was to use monitored anesthesia care (MAC). Immediately prior to administration of medications, the patient was re-assessed for adequacy to receive sedatives. The heart rate, respiratory rate, oxygen saturations, blood pressure, adequacy of pulmonary ventilation, and response to care were monitored throughout the procedure. The physical status of the patient was re-assessed after the procedure. The Colonoscope was introduced through the anus and advanced to the terminal ileum, with identification of the appendiceal orifice and IC valve. The colonoscopy was performed without difficulty. The patient tolerated the procedure well. The quality of the bowel preparation was good. The terminal ileum, ileocecal valve, appendiceal orifice, and rectum were photographed. Scope insertion time was 3 minutes. Scope withdrawal time was 9 minutes. The total duration of the procedure was 12 minutes. Findings: The perianal and digital rectal examinations were normal. The terminal ileum appeared normal. A 15 mm polyp was found in the ascending colon. The polyp was sessile. The polyp was removed with a hot snare. Resection and retrieval were complete. Verification of patient identification for the specimen was done by the physician and nurse using the patient's name, date and medical record number. Estimated blood loss was minimal. Multiple small and large-mouthed diverticula were found from sigmoid to descending colon. There was no evidence of diverticular bleeding. Non-bleeding external and internal hemorrhoids were found during retroflexion. The hemorrhoids were medium-sized. Normal mucosa was found in the entire colon. Biopsies for histology were taken with a cold forceps from the right colon, left colon and rectosigmoid colon for evaluation of microscopic colitis. Impression: - The examined portion of the ileum was normal. - One 15 mm polyp in the ascending colon, removed with a hot snare. Resected and retrieved. - Moderate diverticulosis from sigmoid to descending colon. There was no evidence of diverticular bleeding. - Non-bleeding external and internal hemorrhoids. - Normal mucosa in the entire examined colon. Biopsied. Recommendation: - Patient has a contact number available for emergencies. The signs and symptoms of potential delayed complications were discussed with the patient. Return to normal activities tomorrow. Written discharge instructions were provided to the patient. - High fiber diet. - Continue present medications. - Use fiber, for example Citrucel, Fibercon, Konsyl or Metamucil. - Await pathology results. - Repeat colonoscopy in 3 - 5 years for surveillance based on pathology results. - Telephone GI clinic for pathology results in 2 weeks. - Return to primary care physician. Pola Gandhi MD Pola Gandhi MD 09/03/2019 12:59:05 PM Electronically signed by Pola Gandhi MD Number of Addenda: 0 Note Initiated On: 09/03/2019 12:07 PM Estimated Blood Loss: Estimated blood loss was minimal.
[2019-09-03 13:05] VITALS: BP 110/70
== END 2019-09-03 13:30 | disposition home or self-care (01) ==
LOC: M OPP 10:57
PROVIDERS: ATTEND Internal Medicine Gastroenterology
DX: K63.5 Polyp of colon (principal); K64.8 Other hemorrhoids; K57.30 Diverticulosis of large intestine without perforation or abscess without bleeding; R19.7 Diarrhea, unspecified; I10 Essential (primary) hypertension; E11.9 Type 2 diabetes mellitus without complications; Z79.4 Long term (current) use of insulin; Z79.82 Long term (current) use of aspirin; Z79.891 Long term (current) use of opiate analgesic; Z79.899 Other long term (current) drug therapy; Z88.1 Allergy status to other antibiotic agents; Z87.891 Personal history of nicotine dependence
CPT/HCPCS: 45380; 45385; 88305; J2370

== ENCOUNTER → 2019-09-09 | Outpatient (CLI) | payer OTHER ==
[~2019-09-09] MED LIST changes: -LIDOCAINE 2% 100MG/5ML SDV (FOR ANES.) As Ordered ONE; -NS 1,000 ML IV ONE; -propofoL 200 MG/20 ML VIAL As Ordered ONE
--- NOTE | 2019-09-11 04:36 | ECWPNPC ---
PATIENT NAME: LIUDMILA BETANCOURT : 1960 GENDER: MALE VISIT DATE: 09/09/2019 DISCHARGE DATE: 09/09/19 1413 VISIT LOCKED DATE TIME: PHYSICIAN: JANIE CAMPBELL RESOURCE: JANIE CAMPBELL REASON FOR APPOINTMENT 1. LEFT KNEE AND FOOT PAIN HISTORY OF PRESENT ILLNESS GENERAL: - 58-YEAR-OLD MALE IN FOR CHRONIC PAIN FOLLOW-UP. AT LAST CLINIC VISIT PATIENT'S TRAMADOL WAS INCREASED TO TWICE A DAY DOSING AND HE FEELS THIS WAS EXTREMELY HELPFUL ESPECIALLY WITH REGARDS TO HIS SLEEP. HE RATES HIS PAIN CURRENTLY AT A 7 OUT OF 10 AND DESCRIBES IT AN ACHING AND/OR SHOCKING FEELING. THE MEDICATIONS ARE WORKING WELL AND DENIES MED SIDE EFFECTS AT THIS TIME. FALL RISK SCREENING: SCREENING :NO FALLS REPORTED IN THE LAST YEAR PAIN SCREENING: PATIENT HAS A COMPLAINT OF ACUTE OR CHRONIC PAIN :YES LOCATION OF PAIN:KNEES, FEET LEFT INTENSITY OF PAIN (SCALE OF 1 TO 10):7 WHAT DOES YOUR PAIN FEEL LIKE:ACHING SHOCKING DURATION:CONTINOUS, CONSTANT, ALL DAY PAIN IS INCREASED BY:ACTIVITIES PAIN IS DECREASED BY:USE OF PAIN MEDICATIONS PAIN HAS INTERFERED WITH THE FOLLOWING:MOOD, WALKING ABILITY, HOUSEWORK, RELATIONSHIP WITH OTHERS, ENJOYMENT OF LIFE PLAN/GOALS/TREATMENT/INTERVENTION/FOLLOW UP:SEE PLAN NURSING NOTE: -. PAIN CENTER INTAKE QUESTIONS: DO YOU HAVE A HISTORY OF MRSA? :NO DO YOU TAKE A BLOOD THINNERS? :NO DO YOU HAVE ANY BLEEDING DISORDERS? :NO ANY NEW NUMBNESS OR WEAKNESS IN YOUR LEGS OR ARMS? :NO ANY PACEMAKER,DEFIBRILLATOR, OR DORSAL COLUMN STIMULATOR? :NO DO YOU HAVE ANY RASHES OR OPEN SORES? :NO ARE YOU ALLERGIC TO IV DYE? :NO ARE YOU DIABETIC? :YES ANY NEW PROBLEMS WITH YOUR MEDICATIONS? :NO HAVE YOU RECEIVED A VACCINE IN THE PAST 30 DAYS? :NO DO YOU PLAN TO RECEIVE A VACCINE IN THE NEXT 21 DAYS? :NO DO YOU NEED ANY PRESCRIPTION? :YES TRAMADOL DO YOU TAKE ANY IMMUNOSUPPRESSIVE MEDICATIONS? :NO IS THERE A CHANCE YOU COULD BE ? :NO ARE YOU BREAST FEEDING? :NO CURRENT MEDICATIONS TAKING METFORMIN HCL 1000 MG TABLET 1 TABLET WITH A MEAL ORALLY BID TAKING ASPIR-81 1 TAB ORALLY DAILY TAKING BASAGLAR KWIKPEN 100 UNIT/ML SOLUTION PEN-INJECTOR DIRECTED SUBCUTANEOUS TAKING ENALAPRIL MALEATE 20 MG TABLET 1 TABLET ORALLY ONCE A DAY TAKING PRAVASTATIN SODIUM 80 MG TABLET 1 TABLET ORALLY ONCE A DAY TAKING TRAMADOL HCL 50 MG TABLET 1 TABLET NEEDED ORALLY BID MEDICATION LIST REVIEWED AND RECONCILED WITH THE PATIENT PAST MEDICAL HISTORY DIABETIC HYPERLIPIDIMIA HYPERTENSION ALLERGIES CYPROHEPTADINE HCL: HIVES - ALLERGY SURGICAL HISTORY LEFT KNEE RECONSTRUCTION 02/1980 ARTHROSCOPIC REPAIRS, LEFT & RIGHT KNEE 1982,1989,1994 ARTHROSCOPIC REPAIRS WRIST 2010 RIGHT KNEE REPLACEMENT 2015 SCREWS REMOVED, LEFT KNEE 2018 REMOVAL OF PLATE AND SCREWS FROM LEFT ANKLE 2019 FAMILY HISTORY FATHER: MOTHER: 75 YRS SIBLINGS: ALIVE 2 BROTHER(S) . 3DAUGHTER(S) . 2 DAUGHTER HAVE THYROID. SOCIAL HISTORY GENERAL: TOBACCO USE ARE YOU A:FORMER SMOKER HOW LONG HAS IT BEEN SINCE YOU LAST SMOKED?> 10 YEARS SMOKING CESSATION INFORMATION GIVEN05/28/2019 LATEX QUESTIONNAIRE LATEX ALLERGY : HAVE YOU EVER DEVELOPED ANY TYPE OF REACTION AFTER HANDLING LATEX PRODUCTS SUCH RUBBER GLOVES, CONDOMS, DIAPHRAGMS, BALLOONS, SOCKS, OR UNDERWEAR?NO LATEX ALLERGY : HAVE YOU EVER DEVELOPED ANY TYPE OF REACTION DURING OR AFTER DENTAL APPOINTMENT, VAGINAL/RECTAL EXAMINATION, SURGICAL PROCEDURE, OR ANY OTHER EXPOSURE?NO LATEX RISK : HAVE YOU EVER HAD ANY DIFFICULTY BREATHING OR HIVES AFTER EATING OR HANDLING ANY FRUITS, OR VEGETABLES; SUCH KIWI, BANANAS, STONE FRUITS, OR CHESTNUTSNO LATEX RISK : DO YOU HAVE A PREVIOUS PERSONAL HISTORY OF MORE THAN NINE SURGERIES, SPINA BIFIDA, OR REPEATED CATHERIZATIONS? NO LATEX RISK : ARE YOU FREQUENTLY EXPOSED TO LATEX PRODUCTS IN YOUR OCCUPATION?NO DATE ASKED : 09/09/2019 ALCOHOL SCREENING DID YOU HAVE A DRINK CONTAINING ALCOHOL IN THE PAST YEAR?YES HOW MANY DRINKS DID YOU HAVE ON A TYPICAL DAY WHEN YOU WERE DRINKING IN THE PAST YEAR?1 OR 2 (0 POINTS) HOW OFTEN DID YOU HAVE A DRINK CONTAINING ALCOHOL IN THE PAST YEAR?MONTHLY OR LESS (1 POINT) POINTS1 INTERPRETATIONNEGATIVE RECREATIONAL DRUG USE DRUG USE?YES HOW OFTEN AND HOW MUCH? ONCE A MONTH, MARIJUANA CAFFEINE CAFFEINE USE?YES 2 CUP DAILY SABIANIST [id number] FAITH LANGUAGE LANGUAGES SPOKEN:ROMANSH LEARNING BARRIERS / SPECIAL NEEDS CHANGE FROM LAST VISIT?NO BARRIERS TO LEARNING?NO HEARING IMPAIRED?NO VISION IMPAIRED?YES COGNITIVELY IMPAIRED?NO :CORRECTIVE LENSES READINESS TO LEARN?YES LEARNING PREFERENCES?NO LEARNING CAPABILITIES PRESENT?YES EMOTIONAL BARRIERS?NO SPECIAL DEVICES?YES :OTHER CRUTCHES VAMP LINER NEEDED?NO DOMESTIC VIOLENCE DO YOU FEEL SAFE IN YOUR ENVIRONMENT?YES OCCUPATION: DISABLED. MARITAL STATUS: . OTHERS AT HOME: SPOUSE. NEW PATIENT PAIN DIARY PATIENT DESCRIBES PAIN :ACHING, HAVE IT ALL THE TIME, IT COMES AND GOES, STABBING FROM 0-10, WHAT LEVEL IS YOUR PAIN TODAY?4 PRECIPITATING FACTORS SITTING GIVES ACHING PAIN, PAIN COMES AND GOES. WALKING GIVES STABBING PAIN, PAIN IS CONSTANT. ALLEVIATING FACTORS NOTHING IMPACT ON FUNCTION YES PAIN CLINIC PFS, CLERGY, PUBLIC HEALTH REFERRALS PFS REFERRAL NEEDED?NO CLERGY REFERRAL NEEDED?NO PUBLIC HEALTH REFERRAL NEEDED?NO HAS THE PATIENT BEEN EDUCATED REGARDING HIS/HER PLAN OF CARE?YES HAS THE PATIENT BEEN EDUCATED REGARDING PAIN, THE RISK FOR PAIN, THE IMPORTANCE OF EFFECTIVE PAIN MANAGEMENT, AND THE PAIN ASSESSMENT PROCESS?YES ADVANCE DIRECTIVE ADVANCE DIRECTIVE DISCUSSED WITH PATIENT:YES PT. DAUGHTER MELISSA IS HIS HEALTH CARE PROXY [phone] HOSPITALIZATION/MAJOR DIAGNOSTIC PROCEDURE NOTED ABOVE REVIEW OF SYSTEMS CONSTITUTIONAL: ANY RECENT FEVER NO . CHILLS NO . WEIGHT CHANGE OF UNKNOWN REASONS NO . GASTROENTEROLOGY: NEW UNEXPLAINABLE CHANGES IN BOWEL CONTROL NO . CONSTIPATION NO . GENITOURINARY: ANY NEW CHANGE IN BLADDER CONTROL? NO . NEUROLOGY: NEW ONSET DIZZINESS OR NEUROLOGICAL CHANGES NOT MENTIONED NO . NEW NUMBNESS OR PAIN PATTERNS NOT MENTIONED AND PERTINENT TO TODAY'S VISIT NO . CARDIOLOGY: NEW CHEST PRESSURE NO . NEW CHEST PAIN NO . RESPIRATORY: UNEXPLAINABLE COUGH NO . NEW SHORTNESS OF BREATH NO . VITAL SIGNS WT 288.2 LBS, HT 64 IN, BMI 49.46 INDEX, BP 177/83 MM HG, HR 81 /MIN, RR 18 /MIN, TEMP 97.4 F, OXYGEN SAT % 97%, SAFE IN ENV? 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 EXAMINATION GENERAL EXAMINATION: GENERALNO ACUTE DISTRESS, WELL NOURISHED AND HYDRATED. PSYCHAPPROPRIATE MOOD AND AFFECT . LUNGS:CLEAR TO AUSCULTATION BILATERALLY, NO WHEEZES, RHONCHI, RALES. HEART:NO MURMURS, REGULAR RATE AND RHYTHM. ASSESSMENTS PAIN IN LEFT KNEE - M25.562 (PRIMARY) PAIN IN LEFT FOOT - M79.672 TREATMENT PAIN IN LEFT KNEE REFILL TRAMADOL HCL TABLET, 50 MG, 1 TABLET NEEDED, ORALLY, BID NEEDED CODE D MEDICATION CHRONIC PAIN OKAY FOR 90 DAY FILL, 90 DAYS, 180 CLINICAL NOTES: 58-YEAR-OLD MALE IN FOR CHRONIC PAIN FOLLOW-UP. GIVEN PRESENTING SYMPTOMS RECOMMENDED CONTINUATION OF CURRENT MEDICATION REGIMEN WITH FOLLOW-UP IN 3 MONTHS. PATIENT HAS EXPRESSED UNDERSTANDING OF AND WAS IN AGREEMENT WITH TREATMENT PLAN. GIVEN TIME TO ASK QUESTIONS AND EXPRESS CONCERNS. , ISTOP REGISTRY REVIEWED AND DEMONSTRATES COMPLLIANCE. (REF # [id number]) BRINGS IN MEDICATIONS WHICH IS APPROPRIATE FOR WHAT WAS DISPENSED. RECENT URINE TOXICOLOGY REVIEWED. NO UNAUTHORIZED MEDICATIONS. NO ILLICIT SUBSTANCES AND PRESCRIBED MEDICATIONS WERE PRESENT. PROCEDURE CODES FA211 ESTABILISHED PATIENT [facility] CHARGE DISPOSITION & COMMUNICATION FOLLOW UP 3 MONTHS (REASON: LEFT FOOT AND KNEE PAIN ) ELECTRONICALLY SIGNED BY FALGUNI BARR ON 09/10/2019 AT 08:28 AM EDT DISCLAIMER : THIS IS A VISIT SUMMARY EXTRACTED FROM THE [employer] CHART. IT IS NOT A COPY OF THE [employer] PROGRESS NOTE. TOÑITO
== END ==
LOC: M PAIN 13:30
PROVIDERS: ATTEND Family Medicine
DX: M25.562 Pain in left knee (principal); M79.672 Pain in left foot

== ENCOUNTER → 2019-12-09 | Outpatient (CLI) | payer OTHER ==
[~2019-12-09] MED LIST changes: -ENAL20TA PO; +ENAL20TA11 PO
== END ==
LOC: M PAIN 13:12
PROVIDERS: ATTEND Family Medicine
DX: M79.672 Pain in left foot (principal); M25.562 Pain in left knee

== ENCOUNTER → 2020-03-09 | Outpatient (CLI) | payer OTHER ==
--- NOTE | 2020-03-11 03:15 | ECWPNPC ---
PATIENT NAME: LIUDMILA BETANCOURT : 1960 GENDER: MALE VISIT DATE: 03/09/2020 DISCHARGE DATE: 03/09/20 1100 VISIT LOCKED DATE TIME: PHYSICIAN: JANIE CAMPBELL RESOURCE: JANIE CAMPBELL REASON FOR APPOINTMENT 1. LEFT FOOT AND KNEE HISTORY OF PRESENT ILLNESS GENERAL: - 59-YEAR-OLD MALE IN FOR CHRONIC PAIN FOLLOW-UP. HE RATES HIS PAIN CURRENTLY AT A 6 OUT OF 10 AND DESCRIBES IT CONTINUOUS, AND BURNING. HE FEELS THE MEDICATIONS ARE HELPFUL AND DENIES MED SIDE EFFECTS AT THIS TIME. FALL RISK SCREENING: SCREENING :NO FALLS REPORTED IN THE LAST YEAR PAIN SCREENING: PATIENT HAS A COMPLAINT OF ACUTE OR CHRONIC PAIN :YES LOCATION OF PAIN:ANKLE(S), FEET INTENSITY OF PAIN (SCALE OF 1 TO 10):6 WHAT DOES YOUR PAIN FEEL LIKE:CONTINOUS, BURNING ELECTRICAL NURSING NOTE: -. PAIN CENTER INTAKE QUESTIONS: DO YOU HAVE A HISTORY OF MRSA? :NO DO YOU TAKE A BLOOD THINNERS? :NO DO YOU HAVE ANY BLEEDING DISORDERS? :NO ANY NEW NUMBNESS OR WEAKNESS IN YOUR LEGS OR ARMS? :NO ANY PACEMAKER,DEFIBRILLATOR, OR DORSAL COLUMN STIMULATOR? :NO DO YOU HAVE ANY RASHES OR OPEN SORES? :NO ARE YOU ALLERGIC TO IV DYE? :NO ARE YOU DIABETIC? :NO ANY NEW PROBLEMS WITH YOUR MEDICATIONS? :NO HAVE YOU RECEIVED A VACCINE IN THE PAST 30 DAYS? :NO DO YOU PLAN TO RECEIVE A VACCINE IN THE NEXT 21 DAYS? :NO DO YOU NEED ANY PRESCRIPTION? :NO DO YOU TAKE ANY IMMUNOSUPPRESSIVE MEDICATIONS? :NO IS THERE A CHANCE YOU COULD BE ? :NO ARE YOU BREAST FEEDING? :NO CURRENT MEDICATIONS TAKING METFORMIN HCL 1000 MG TABLET 1 TABLET WITH A MEAL ORALLY BID TAKING ASPIR-81 1 TAB ORALLY DAILY TAKING BASAGLAR KWIKPEN 100 UNIT/ML SOLUTION PEN-INJECTOR DIRECTED SUBCUTANEOUS TAKING ENALAPRIL MALEATE 20 MG TABLET 1 TABLET ORALLY ONCE A DAY TAKING PRAVASTATIN SODIUM 80 MG TABLET 1 TABLET ORALLY ONCE A DAY TAKING TRAMADOL HCL 50 MG TABLET 1 TABLET NEEDED ORALLY BID NEEDED CODE D MEDICATION CHRONIC PAIN OKAY FOR 90 DAY FILL MEDICATION LIST REVIEWED AND RECONCILED WITH THE PATIENT PAST MEDICAL HISTORY DIABETIC HYPERLIPIDIMIA HYPERTENSION ALLERGIES CYPROHEPTADINE HCL: HIVES - ALLERGY SURGICAL HISTORY LEFT KNEE RECONSTRUCTION 02/1980 ARTHROSCOPIC REPAIRS, LEFT & RIGHT KNEE 1982,1989,1994 ARTHROSCOPIC REPAIRS WRIST 2010 RIGHT KNEE REPLACEMENT 2015 SCREWS REMOVED, LEFT KNEE 2018 REMOVAL OF PLATE AND SCREWS FROM LEFT ANKLE 2019 FAMILY HISTORY FATHER: MOTHER: 75 YRS SIBLINGS: ALIVE 2 BROTHER(S) . 3DAUGHTER(S) . 2 DAUGHTER HAVE THYROID. SOCIAL HISTORY GENERAL: TOBACCO USE ARE YOU A:FORMER SMOKER HOW LONG HAS IT BEEN SINCE YOU LAST SMOKED?> 10 YEARS SMOKING CESSATION INFORMATION GIVEN05/28/2019 LATEX QUESTIONNAIRE LATEX ALLERGY : HAVE YOU EVER DEVELOPED ANY TYPE OF REACTION AFTER HANDLING LATEX PRODUCTS SUCH RUBBER GLOVES, CONDOMS, DIAPHRAGMS, BALLOONS, SOCKS, OR UNDERWEAR?NO LATEX ALLERGY : HAVE YOU EVER DEVELOPED ANY TYPE OF REACTION DURING OR AFTER DENTAL APPOINTMENT, VAGINAL/RECTAL EXAMINATION, SURGICAL PROCEDURE, OR ANY OTHER EXPOSURE?NO DATE ASKED : 09/09/2019 LATEX RISK : HAVE YOU EVER HAD ANY DIFFICULTY BREATHING OR HIVES AFTER EATING OR HANDLING ANY FRUITS, OR VEGETABLES; SUCH KIWI, BANANAS, STONE FRUITS, OR CHESTNUTSNO LATEX RISK : DO YOU HAVE A PREVIOUS PERSONAL HISTORY OF MORE THAN NINE SURGERIES, SPINA BIFIDA, OR REPEATED CATHERIZATIONS? NO LATEX RISK : ARE YOU FREQUENTLY EXPOSED TO LATEX PRODUCTS IN YOUR OCCUPATION?NO ALCOHOL SCREENING DID YOU HAVE A DRINK CONTAINING ALCOHOL IN THE PAST YEAR?YES HOW MANY DRINKS DID YOU HAVE ON A TYPICAL DAY WHEN YOU WERE DRINKING IN THE PAST YEAR?1 OR 2 (0 POINTS) HOW OFTEN DID YOU HAVE A DRINK CONTAINING ALCOHOL IN THE PAST YEAR?MONTHLY OR LESS (1 POINT) POINTS1 INTERPRETATIONNEGATIVE RECREATIONAL DRUG USE DRUG USE?YES HOW OFTEN AND HOW MUCH? ONCE A MONTH, MARIJUANA CAFFEINE CAFFEINE USE?YES 2 CUP DAILY FAITH [id number] DRUZE LANGUAGE LANGUAGES SPOKEN:PAPUA [place] LEARNING BARRIERS / SPECIAL NEEDS CHANGE FROM LAST VISIT?NO BARRIERS TO LEARNING?NO HEARING IMPAIRED?NO VISION IMPAIRED?YES COGNITIVELY IMPAIRED?NO :CORRECTIVE LENSES READINESS TO LEARN?YES LEARNING PREFERENCES?NO LEARNING CAPABILITIES PRESENT?YES EMOTIONAL BARRIERS?NO SPECIAL DEVICES?YES :OTHER CRUTCHES QUALITY LAB ASSOC NEEDED?NO DOMESTIC VIOLENCE DO YOU FEEL SAFE IN YOUR ENVIRONMENT?YES OCCUPATION: DISABLED. MARITAL STATUS: . OTHERS AT HOME: SPOUSE. PATIENT DESCRIBES PAIN :ACHING, HAVE IT ALL THE TIME, IT COMES AND GOES, STABBING FROM 0-10, WHAT LEVEL IS YOUR PAIN TODAY?4 PRECIPITATING FACTORS SITTING GIVES ACHING PAIN, PAIN COMES AND GOES. WALKING GIVES STABBING PAIN, PAIN IS CONSTANT. ALLEVIATING FACTORS NOTHING IMPACT ON FUNCTION YES PAIN CLINIC PFS, CLERGY, PUBLIC HEALTH REFERRALS PFS REFERRAL NEEDED?NO CLERGY REFERRAL NEEDED?NO PUBLIC HEALTH REFERRAL NEEDED?NO HAS THE PATIENT BEEN EDUCATED REGARDING HIS/HER PLAN OF CARE?YES HAS THE PATIENT BEEN EDUCATED REGARDING PAIN, THE RISK FOR PAIN, THE IMPORTANCE OF EFFECTIVE PAIN MANAGEMENT, AND THE PAIN ASSESSMENT PROCESS?YES ADVANCE DIRECTIVE ADVANCE DIRECTIVE DISCUSSED WITH PATIENT:YES PT. DAUGHTER MELISSA IS HIS HEALTH CARE PROXY [phone] HOSPITALIZATION/MAJOR DIAGNOSTIC PROCEDURE NOTED ABOVE REVIEW OF SYSTEMS CONSTITUTIONAL: ANY RECENT FEVER NO . CHILLS NO . WEIGHT CHANGE OF UNKNOWN REASONS NO . GASTROENTEROLOGY: NEW UNEXPLAINABLE CHANGES IN BOWEL CONTROL NO . CONSTIPATION NO . GENITOURINARY: ANY NEW CHANGE IN BLADDER CONTROL? NO . NEUROLOGY: NEW ONSET DIZZINESS OR NEUROLOGICAL CHANGES NOT MENTIONED NO . NEW NUMBNESS OR PAIN PATTERNS NOT MENTIONED AND PERTINENT TO TODAY'S VISIT NO . CARDIOLOGY: NEW CHEST PRESSURE NO . NEW CHEST PAIN NO . RESPIRATORY: UNEXPLAINABLE COUGH NO . NEW SHORTNESS OF BREATH NO . VITAL SIGNS WT 297.6 LBS, HT 64 IN, BMI 51.08 INDEX, BP 183/95 MM HG, HR 91 /MIN, RR 18 /MIN, TEMP 96.8 F, OXYGEN SAT % 975, SAFE IN ENV? (Y/N) YES, NA INITIALS AW 1027, REVIEWED BY: KG. EXAMINATION GENERAL EXAMINATION: GENERALNO ACUTE DISTRESS, WELL NOURISHED AND HYDRATED. PSYCHAPPROPRIATE MOOD AND AFFECT . LUNGS:CLEAR TO AUSCULTATION BILATERALLY, NO WHEEZES, RHONCHI, RALES. HEART:NO MURMURS, REGULAR RATE AND RHYTHM. ASSESSMENTS PAIN IN LEFT FOOT - M79.672 (PRIMARY) LEFT KNEE PAIN - M25.562 TREATMENT PAIN IN LEFT FOOT NOTES: 59-YEAR-OLD MALE IN FOR CHRONIC PAIN FOLLOW-UP. GIVEN PRESENTING SYMPTOMS RECOMMENDED CONTINUATION CURRENT MEDICATION REGIMEN WITH FOLLOW-UP IN 3 MONTHS. PATIENT HAS EXPRESSED UNDERSTANDING OF AND WAS IN AGREEMENT WITH TREATMENT PLAN. GIVEN TIME TO ASK QUESTIONS AND EXPRESS CONCERNS. , ISTOP REGISTRY REVIEWED AND DEMONSTRATES COMPLLIANCE. (REF # [id number] ) BRINGS IN MEDICATIONS WHICH IS APPROPRIATE FOR WHAT WAS DISPENSED. RECENT URINE TOXICOLOGY REVIEWED. NO UNAUTHORIZED MEDICATIONS. NO ILLICIT SUBSTANCES AND PRESCRIBED MEDICATIONS WERE PRESENT. ONLY TRAMADOL 50MG BID FOR 30 DAYS WAS SENT AT THIS VISIT. OTHERS CONTINUE TRAMADOL HCL TABLET, 50 MG, 1 TABLET NEEDED, ORALLY, BID NEEDED, 30 DAY(S), 60 REFILL TRAMADOL HCL TABLET, 50 MG, 1 TABLET NEEDED, ORALLY, BID NEEDED CODE D MEDICATION CHRONIC PAIN OKAY FOR 90 DAY FILL, 90 DAYS, 180 REFILL TRAMADOL HCL TABLET, 50 MG, 1 TABLET NEEDED, ORALLY, BID NEEDED CODE D MEDICATION CHRONIC PAIN OKAY FOR 90 DAY FILL, 90 DAYS, 180 NOTES: 59 YEAR. PROCEDURE CODES FA211 ESTABILISHED PATIENT [facility] CHARGE DISPOSITION & COMMUNICATION FOLLOW UP 3 MONTHS (REASON: KNEE AND FOOT PAIN ) ELECTRONICALLY SIGNED BY FALGUNI BARR ON 03/10/2020 AT 08:57 AM EST DISCLAIMER : THIS IS A VISIT SUMMARY EXTRACTED FROM THE [employer] CHART. IT IS NOT A COPY OF THE [employer] PROGRESS NOTE. TOÑITO
== END ==
LOC: M PAIN 10:30
PROVIDERS: ATTEND Family Medicine
DX: M79.672 Pain in left foot (principal); M25.562 Pain in left knee; G89.29 Other chronic pain; E11.9 Type 2 diabetes mellitus without complications; Z96.651 Presence of right artificial knee joint; Z87.891 Personal history of nicotine dependence; Z88.8 Allergy status to other drugs, medicaments and biological substances; E66.01 Morbid (severe) obesity due to excess calories; Z68.43 Body mass index [BMI] 50.0-59.9, adult; Z79.4 Long term (current) use of insulin; Z79.82 Long term (current) use of aspirin; Z79.899 Other long term (current) drug therapy

== ENCOUNTER → 2020-06-08 | Outpatient (CLI) | payer MEDICARE, OTHER ==
--- NOTE | 2020-06-10 06:21 | ECWPNPC ---
PATIENT NAME: LIUDMILA BETANCOURT : 1960 GENDER: MALE VISIT DATE: 06/08/2020 DISCHARGE DATE: 06/08/20 1000 VISIT LOCKED DATE TIME: PHYSICIAN: JANIE CAMPBELL RESOURCE: JANIE CAMPBELL REASON FOR APPOINTMENT 1. KNEE AND FOOT PAIN HISTORY OF PRESENT ILLNESS GENERAL: 59-YEAR-OLD MALE IN FOR CHRONIC PAIN FOLLOW-UP. HE RATES PAIN CURRENTLY AT A 7 OUT OF 10 AND DESCRIBES IT CONTINUOUS, SHARP, AND STABBING. HE FEELS MEDICATIONS ARE HELPFUL AND DENIES MED SIDE EFFECTS AT THIS TIME. FALL RISK SCREENING: SCREENING : NO FALLS REPORTED IN THE LAST YEAR , : NO FALLS REPORTED IN THE LAST YEAR. PAIN SCREENING: PATIENT HAS A COMPLAINT OF ACUTE OR CHRONIC PAIN :YES LOCATION OF PAIN:KNEES, ANKLE(S) INTENSITY OF PAIN (SCALE OF 1 TO 10):7 WHAT DOES YOUR PAIN FEEL LIKE:CONTINOUS, SHARP, STABBING DURATION:CONTINOUS PAIN IS INCREASED BY:ACTIVITIES, PROLONGED STANDING, OTHERS COLD, TEMPERATURE CHANGES PAIN IS DECREASED BY:USE OF PAIN MEDICATIONS, SITTING NURSING NOTE: - -. PAIN CENTER INTAKE QUESTIONS: DO YOU HAVE A HISTORY OF MRSA? :NO DO YOU TAKE A BLOOD THINNERS? :NO DO YOU HAVE ANY BLEEDING DISORDERS? :NO ANY NEW NUMBNESS OR WEAKNESS IN YOUR LEGS OR ARMS? :NO ANY PACEMAKER,DEFIBRILLATOR, OR DORSAL COLUMN STIMULATOR? :NO DO YOU HAVE ANY RASHES OR OPEN SORES? :NO ARE YOU ALLERGIC TO IV DYE? :NO ARE YOU DIABETIC? :YES TYPE II ANY NEW PROBLEMS WITH YOUR MEDICATIONS? :NO HAVE YOU RECEIVED A VACCINE IN THE PAST 30 DAYS? :YES IF SO WHAT VACCINE AND WHEN? FIRST COVID VACCINATION 06/01/2020 DO YOU PLAN TO RECEIVE A VACCINE IN THE NEXT 21 DAYS? :YES IF SO WHAT VACCINE AND WHEN? SECOND COVID VACCINATION 07/02/2020 DO YOU TAKE ANY IMMUNOSUPPRESSIVE MEDICATIONS? :NO ANY HISTORY OF SEIZURES? :NO ANY HISTORY OF CARDIAC ISSUES OR EVENTS? :NO DO YOU HAVE ANY KIDNEY OR LIVER DISEASE? :NO DO YOU HAVE SLEEP APNEA? :NO ANY RECENT HEAD INJURY? :NO DO YOU HAVE ANY NEW INFECTIONS? :NO IS THERE A CHANCE YOU COULD BE ? :NO ARE YOU BREAST FEEDING? :NO WHEN DID YOU LAST EAT? : - WHEN DID YOU LAST DRINK? : - WHAT DID YOU LAST DRINK? : - NAME OF PERSON DRIVING YOU HOME? : - DO YOU HAVE ANY OTHER QUESTIONS OR CONCERNS? : - CURRENT MEDICATIONS TAKING METFORMIN HCL 1000 MG TABLET 1 TABLET WITH A MEAL ORALLY BID TAKING ASPIR-81 1 TAB ORALLY DAILY TAKING ENALAPRIL MALEATE 20 MG TABLET 1 TABLET ORALLY ONCE A DAY TAKING PRAVASTATIN SODIUM 80 MG TABLET 1 TABLET ORALLY ONCE A DAY TAKING TRAMADOL HCL 50 MG TABLET 1 TABLET NEEDED ORALLY BID NEEDED TAKING LEVEMIR FLEXPEN 50 MG 1 INJECTION TWICE DAILY NOT-TAKING BASAGLAR KWIKPEN 100 UNIT/ML SOLUTION PEN-INJECTOR DIRECTED SUBCUTANEOUS MEDICATION LIST REVIEWED AND RECONCILED WITH THE PATIENT ALLERGIES NO[ALLERGIES VERIFIED] SOCIAL HISTORY GENERAL: TOBACCO USE ARE YOU A:FORMER SMOKER HOW LONG HAS IT BEEN SINCE YOU LAST SMOKED?> 10 YEARS SMOKING CESSATION INFORMATION GIVEN05/28/2019 LATEX QUESTIONNAIRE LATEX ALLERGY : HAVE YOU EVER DEVELOPED ANY TYPE OF REACTION AFTER HANDLING LATEX PRODUCTS SUCH RUBBER GLOVES, CONDOMS, DIAPHRAGMS, BALLOONS, SOCKS, OR UNDERWEAR?NO LATEX ALLERGY : HAVE YOU EVER DEVELOPED ANY TYPE OF REACTION DURING OR AFTER DENTAL APPOINTMENT, VAGINAL/RECTAL EXAMINATION, SURGICAL PROCEDURE, OR ANY OTHER EXPOSURE?NO LATEX RISK : HAVE YOU EVER HAD ANY DIFFICULTY BREATHING OR HIVES AFTER EATING OR HANDLING ANY FRUITS, OR VEGETABLES; SUCH KIWI, BANANAS, STONE FRUITS, OR CHESTNUTSNO LATEX RISK : DO YOU HAVE A PREVIOUS PERSONAL HISTORY OF MORE THAN NINE SURGERIES, SPINA BIFIDA, OR REPEATED CATHERIZATIONS? NO LATEX RISK : ARE YOU FREQUENTLY EXPOSED TO LATEX PRODUCTS IN YOUR OCCUPATION?NO DATE ASKED : 06/08/2020 ALCOHOL USE: OCCASIONAL-SOCIAL. ALCOHOL SCREENING DID YOU HAVE A DRINK CONTAINING ALCOHOL IN THE PAST YEAR?YES HOW MANY DRINKS DID YOU HAVE ON A TYPICAL DAY WHEN YOU WERE DRINKING IN THE PAST YEAR?1 OR 2 (0 POINTS) HOW OFTEN DID YOU HAVE A DRINK CONTAINING ALCOHOL IN THE PAST YEAR?MONTHLY OR LESS (1 POINT) POINTS1 INTERPRETATIONNEGATIVE RECREATIONAL DRUG USE DRUG USE?YES HOW OFTEN AND HOW MUCH? ONCE A MONTH, MARIJUANA CAFFEINE CAFFEINE USE?YES 2 CUP DAILY NONDENOMINATIONAL [id number] SABIANISM LANGUAGE LANGUAGES SPOKEN:JAPANESE LEARNING BARRIERS / SPECIAL NEEDS CHANGE FROM LAST VISIT?NO BARRIERS TO LEARNING?NO HEARING IMPAIRED?NO VISION IMPAIRED?YES :CORRECTIVE LENSES COGNITIVELY IMPAIRED?NO READINESS TO LEARN?YES LEARNING PREFERENCES?NO LEARNING CAPABILITIES PRESENT?YES EMOTIONAL BARRIERS?NO SPECIAL DEVICES?YES :OTHER CRUTCHES SUPERVISOR NETWORK CONTROL OPERATORS NEEDED?NO DOMESTIC VIOLENCE DO YOU FEEL SAFE IN YOUR ENVIRONMENT?YES OCCUPATION: DISABLED. MARITAL STATUS: . OTHERS AT HOME: SPOUSE. PATIENT DESCRIBES PAIN :ACHING, HAVE IT ALL THE TIME, IT COMES AND GOES, STABBING FROM 0-10, WHAT LEVEL IS YOUR PAIN TODAY?4 PRECIPITATING FACTORS SITTING GIVES ACHING PAIN, PAIN COMES AND GOES. WALKING GIVES STABBING PAIN, PAIN IS CONSTANT. ALLEVIATING FACTORS NOTHING IMPACT ON FUNCTION YES - PFS REFERRAL NEEDED?NO CLERGY REFERRAL NEEDED?NO PUBLIC HEALTH REFERRAL NEEDED?NO HAS THE PATIENT BEEN EDUCATED REGARDING HIS/HER PLAN OF CARE?YES HAS THE PATIENT BEEN EDUCATED REGARDING PAIN, THE RISK FOR PAIN, THE IMPORTANCE OF EFFECTIVE PAIN MANAGEMENT, AND THE PAIN ASSESSMENT PROCESS?YES ADVANCE DIRECTIVE ADVANCE DIRECTIVE DISCUSSED WITH PATIENT:YES PT. DAUGHTER MELISSA IS HIS HEALTH CARE PROXY [phone] REVIEW OF SYSTEMS CONSTITUTIONAL: ANY RECENT FEVER NO . CHILLS NO . WEIGHT CHANGE OF UNKNOWN REASONS NO . GASTROENTEROLOGY: NEW UNEXPLAINABLE CHANGES IN BOWEL CONTROL NO . CONSTIPATION NO . GENITOURINARY: ANY NEW CHANGE IN BLADDER CONTROL? NO . NEUROLOGY: NEW ONSET DIZZINESS OR NEUROLOGICAL CHANGES NOT MENTIONED NO . NEW NUMBNESS OR PAIN PATTERNS NOT MENTIONED AND PERTINENT TO TODAY'S VISIT NO . CARDIOLOGY: NEW CHEST PRESSURE NO . PATIENT DENIES NO . RESPIRATORY: UNEXPLAINABLE COUGH NO . NEW SHORTNESS OF BREATH NO . VITAL SIGNS WT 298.6 LBS, HT 64 IN, BMI 51.25 INDEX, BP 176/92 MM HG, REPEAT BP 152/90 MANUAL, HR 62 /MIN, RR 18 /MIN, TEMP 95.6 F, OXYGEN SAT % 100%, SAFE IN ENV? (Y/N) YES, NA INITIALS AW 0936, REVIEWED BY: JONAH BP RETAKEN. PROVIDER NOTIFIED. CHEKO ARNOLD MA. EXAMINATION GENERAL EXAMINATION: GENERALNO ACUTE DISTRESS, WELL NOURISHED AND HYDRATED. PSYCHAPPROPRIATE MOOD AND AFFECT . LUNGS:CLEAR TO AUSCULTATION BILATERALLY, NO WHEEZES, RHONCHI, RALES. HEART:NO MURMURS, REGULAR RATE AND RHYTHM. ASSESSMENTS PAIN IN LEFT KNEE - M25.562 (PRIMARY) PAIN IN LEFT FOOT - M79.672 TREATMENT PAIN IN LEFT KNEE REFILL TRAMADOL HCL TABLET, 50 MG, 1 TABLET NEEDED, ORALLY, BID NEEDED, 30 DAY(S), 60, REFILLS 2 NOTES: 51-YEAR-OLD MALE IN FOR CHRONIC PAIN FOLLOW-UP. GIVEN PRESENTING SYMPTOMS RECOMMENDED CONTINUATION OF CURRENT MEDICATION REGIMEN WITH FOLLOW-UP IN 3 MONTHS. PATIENT HAS EXPRESSED UNDERSTANDING OF AND WAS IN AGREEMENT WITH TREATMENT PLAN. GIVEN TIME TO ASK QUESTIONS AND EXPRESS CONCERNS. , [employer] REGISTRY REVIEWED AND DEMONSTRATES COMPLLIANCE. (REF # [id number] ) BRINGS IN MEDICATIONS WHICH IS APPROPRIATE FOR WHAT WAS DISPENSED. RECENT URINE TOXICOLOGY REVIEWED. NO UNAUTHORIZED MEDICATIONS. NO ILLICIT SUBSTANCES AND PRESCRIBED MEDICATIONS WERE PRESENT. PROCEDURE CODES [id number] ESTABILISHED PATIENT [facility] CHARGE DISPOSITION & COMMUNICATION FOLLOW UP 3 MONTHS (REASON: KNEE AND FOOT PAIN ) ELECTRONICALLY SIGNED BY FALGUNI BARR ON 06/09/2020 AT 08:28 AM EDT DISCLAIMER : THIS IS A VISIT SUMMARY EXTRACTED FROM THE [employer] CHART. IT IS NOT A COPY OF THE [employer] PROGRESS NOTE. TOÑITO
== END ==
LOC: M PAIN 09:15
PROVIDERS: ATTEND Family Medicine
DX: M25.562 Pain in left knee (principal); M79.672 Pain in left foot; G89.29 Other chronic pain; E11.9 Type 2 diabetes mellitus without complications; Z87.891 Personal history of nicotine dependence; E66.01 Morbid (severe) obesity due to excess calories; Z68.43 Body mass index [BMI] 50.0-59.9, adult; Z79.4 Long term (current) use of insulin; Z79.82 Long term (current) use of aspirin; Z79.899 Other long term (current) drug therapy

== ENCOUNTER → 2020-09-08 | Outpatient (CLI) | payer MEDICARE, OTHER ==
--- NOTE | 2020-09-11 05:38 | ECWPNPC ---
PATIENT NAME: LIUDMILA BETANCOURT : 1960 GENDER: MALE VISIT DATE: 09/08/2020 DISCHARGE DATE: 09/08/20936 VISIT LOCKED DATE TIME: PHYSICIAN: JANIE CAMPBELL RESOURCE: JANIE CAMPBELL REASON FOR APPOINTMENT 1. KNEE AND FOOT PAIN HISTORY OF PRESENT ILLNESS GENERAL: HPI 59-YEAR-OLD MALE IN FOR CHRONIC PAIN FOLLOW-UP. HE RATES HIS PAIN CURRENTLY AT A 2 OUT OF 10 AND DESCRIBES IT SHARP. PATIENT ADMITS TO BEING RECENTLY DIAGNOSED WITH AN INFECTION IN HIS LEFT FOOT WHICH WAS DEBRIDED AND HE STATES THAT SINCE THAT TIME HE HAS EXPERIENCED LESS PAIN.. -. FALL RISK SCREENING: SCREENING : NO FALLS REPORTED IN THE LAST YEAR. PAIN SCREENING: PATIENT HAS A COMPLAINT OF ACUTE OR CHRONIC PAIN :YES LOCATION OF PAIN:KNEES, FEET INTENSITY OF PAIN (SCALE OF 1 TO 10):2 WHAT DOES YOUR PAIN FEEL LIKE:SHARP DURATION:CONTINOUS, CONSTANT PAIN IS INCREASED BY:ACTIVITIES, PROLONGED STANDING PAIN IS DECREASED BY:USE OF PAIN MEDICATIONS, SITTING NURSING NOTE: -. PAIN CENTER INTAKE QUESTIONS: DO YOU HAVE A HISTORY OF MRSA? :NO DO YOU TAKE A BLOOD THINNERS? :NO DO YOU HAVE ANY BLEEDING DISORDERS? :NO ANY NEW NUMBNESS OR WEAKNESS IN YOUR LEGS OR ARMS? :NO ANY PACEMAKER,DEFIBRILLATOR, OR DORSAL COLUMN STIMULATOR? :NO DO YOU HAVE ANY RASHES OR OPEN SORES? :NO ARE YOU ALLERGIC TO IV DYE? :NO ARE YOU DIABETIC? :YES TYPE II ANY NEW PROBLEMS WITH YOUR MEDICATIONS? :NO HAVE YOU RECEIVED A VACCINE IN THE PAST 30 DAYS? :NO SECOND COVID VACCINATION 07/02/2020 DO YOU PLAN TO RECEIVE A VACCINE IN THE NEXT 21 DAYS? :NO DO YOU TAKE ANY IMMUNOSUPPRESSIVE MEDICATIONS? :NO ANY HISTORY OF SEIZURES? :NO ANY HISTORY OF CARDIAC ISSUES OR EVENTS? :NO DO YOU HAVE ANY KIDNEY OR LIVER DISEASE? :NO DO YOU HAVE SLEEP APNEA? :NO ANY RECENT HEAD INJURY? :NO DO YOU HAVE ANY NEW INFECTIONS? :NO IS THERE A CHANCE YOU COULD BE ? :NO ARE YOU BREAST FEEDING? :NO WHEN DID YOU LAST EAT? : - WHEN DID YOU LAST DRINK? : - WHAT DID YOU LAST DRINK? : - NAME OF PERSON DRIVING YOU HOME? : - DO YOU HAVE ANY OTHER QUESTIONS OR CONCERNS? : - CURRENT MEDICATIONS TAKING METFORMIN HCL 1000 MG TABLET 1 TABLET WITH A MEAL ORALLY BID TAKING ENALAPRIL MALEATE 20 MG TABLET 1 TABLET ORALLY ONCE A DAY TAKING PRAVASTATIN SODIUM 80 MG TABLET 1 TABLET ORALLY ONCE A DAY TAKING LEVEMIR FLEXPEN 50 MG 1 INJECTION TWICE DAILY TAKING TRAMADOL HCL 50 MG TABLET 1 TABLET NEEDED ORALLY BID NEEDED TAKING NOVOLIN 70/30 (70-30) 100 UNIT/ML SUSPENSION DIRECTED INTRAMUSCULARLY TID, NOTES: 10 UNITS TAKING OXYCODONE-ACETAMINOPHEN 5-325 MG TABLET 1 TABLET NEEDED ORALLY EVERY 6 HRS NOT-TAKING ASPIR-81 1 TAB ORALLY DAILY, NOTES: CURRENTLY HOLDING 09/08/2020 NOT-TAKING BASAGLAR KWIKPEN 100 UNIT/ML SOLUTION PEN-INJECTOR DIRECTED SUBCUTANEOUS MEDICATION LIST REVIEWED AND RECONCILED WITH THE PATIENT PAST MEDICAL HISTORY DIABETIC HYPERLIPIDIMIA HYPERTENSION ALLERGIES CYPROHEPTADINE HCL: HIVES - ALLERGY SURGICAL HISTORY LEFT KNEE RECONSTRUCTION 02/1980 ARTHROSCOPIC REPAIRS, LEFT & RIGHT KNEE 1982,1989,1994 ARTHROSCOPIC REPAIRS WRIST 2009 RIGHT KNEE REPLACEMENT 2014 SCREWS REMOVED, LEFT KNEE 2018 REMOVAL OF PLATE AND SCREWS FROM LEFT ANKLE 2019 LEFT ANKLE DEBREEDED 2020 SOCIAL HISTORY GENERAL: TOBACCO USE ARE YOU A:FORMER SMOKER HOW LONG HAS IT BEEN SINCE YOU LAST SMOKED?> 10 YEARS SMOKING CESSATION INFORMATION GIVEN05/28/2019 LATEX QUESTIONNAIRE LATEX ALLERGY : HAVE YOU EVER DEVELOPED ANY TYPE OF REACTION AFTER HANDLING LATEX PRODUCTS SUCH RUBBER GLOVES, CONDOMS, DIAPHRAGMS, BALLOONS, SOCKS, OR UNDERWEAR?NO LATEX ALLERGY : HAVE YOU EVER DEVELOPED ANY TYPE OF REACTION DURING OR AFTER DENTAL APPOINTMENT, VAGINAL/RECTAL EXAMINATION, SURGICAL PROCEDURE, OR ANY OTHER EXPOSURE?NO LATEX RISK : HAVE YOU EVER HAD ANY DIFFICULTY BREATHING OR HIVES AFTER EATING OR HANDLING ANY FRUITS, OR VEGETABLES; SUCH KIWI, BANANAS, STONE FRUITS, OR CHESTNUTSNO LATEX RISK : DO YOU HAVE A PREVIOUS PERSONAL HISTORY OF MORE THAN NINE SURGERIES, SPINA BIFIDA, OR REPEATED CATHERIZATIONS? NO LATEX RISK : ARE YOU FREQUENTLY EXPOSED TO LATEX PRODUCTS IN YOUR OCCUPATION?NO DATE ASKED : 09/08/2020 ALCOHOL USE: OCCASIONAL-SOCIAL. ALCOHOL SCREENING DID YOU HAVE A DRINK CONTAINING ALCOHOL IN THE PAST YEAR?YES HOW MANY DRINKS DID YOU HAVE ON A TYPICAL DAY WHEN YOU WERE DRINKING IN THE PAST YEAR?1 OR 2 (0 POINTS) HOW OFTEN DID YOU HAVE A DRINK CONTAINING ALCOHOL IN THE PAST YEAR?MONTHLY OR LESS (1 POINT) POINTS1 INTERPRETATIONNEGATIVE RECREATIONAL DRUG USE DRUG USE?YES HOW OFTEN AND HOW MUCH? 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 MARITAL STATUS: . OTHERS AT HOME: SPOUSE. PATIENT DESCRIBES PAIN :ACHING, HAVE IT ALL THE TIME, IT COMES AND GOES, STABBING FROM 0-10, WHAT LEVEL IS YOUR PAIN TODAY?4 PRECIPITATING FACTORS SITTING GIVES ACHING PAIN, PAIN COMES AND GOES. WALKING GIVES STABBING PAIN, PAIN IS CONSTANT. ALLEVIATING FACTORS NOTHING IMPACT ON FUNCTION YES - PFS REFERRAL NEEDED?NO CLERGY REFERRAL NEEDED?NO PUBLIC HEALTH REFERRAL NEEDED?NO HAS THE PATIENT BEEN EDUCATED REGARDING HIS/HER PLAN OF CARE?YES HAS THE PATIENT BEEN EDUCATED REGARDING PAIN, THE RISK FOR PAIN, THE IMPORTANCE OF EFFECTIVE PAIN MANAGEMENT, AND THE PAIN ASSESSMENT PROCESS?YES ADVANCE DIRECTIVE ADVANCE DIRECTIVE DISCUSSED WITH PATIENT:YES PT. DAUGHTER MELISSA IS HIS HEALTH CARE PROXY [phone] HOSPITALIZATION/MAJOR DIAGNOSTIC PROCEDURE NOTED ABOVE REVIEW OF SYSTEMS CONSTITUTIONAL: ANY RECENT FEVER NO . CHILLS NO . WEIGHT CHANGE OF UNKNOWN REASONS NO . GASTROENTEROLOGY: NEW UNEXPLAINABLE CHANGES IN BOWEL CONTROL NO . CONSTIPATION NO . GENITOURINARY: ANY NEW CHANGE IN BLADDER CONTROL? NO . NEUROLOGY: NEW ONSET DIZZINESS OR NEUROLOGICAL CHANGES NOT MENTIONED NO . NEW NUMBNESS OR PAIN PATTERNS NOT MENTIONED AND PERTINENT TO TODAY'S VISIT NO . CARDIOLOGY: NEW CHEST PRESSURE NO . PATIENT DENIES NO . RESPIRATORY: UNEXPLAINABLE COUGH NO . NEW SHORTNESS OF BREATH NO . VITAL SIGNS WT 278.6 LBS, HT 64 IN, BMI 47.82 INDEX, BP 172/86 MM HG, REPEAT BP 148/82 MANUAL, HR 83 /MIN, RR 18 /MIN, TEMP 95.0 F, OXYGEN SAT % 97%, SAFE IN ENV? (Y/N) YES, NA INITIALS AW 0914, REVIEWED BY: JONY BP TAKEN. CHEKO ARNOLD MA. EXAMINATION GENERAL EXAMINATION: GENERALNO ACUTE DISTRESS, WELL NOURISHED AND HYDRATED. PSYCHAPPROPRIATE MOOD AND AFFECT . LUNGS:CLEAR TO AUSCULTATION BILATERALLY, NO WHEEZES, RHONCHI, RALES. HEART:NO MURMURS, REGULAR RATE AND RHYTHM. ASSESSMENTS PAIN IN LEFT KNEE - M25.562 (PRIMARY) TREATMENT PAIN IN LEFT KNEE NOTES: 59-YEAR-OLD MALE IN FOR CHRONIC PAIN FOLLOW-UP. GIVEN PRESENTING SYMPTOMS RECOMMEND CONTINUATION OF CURRENT MEDICATION REGIMEN WITH FOLLOW-UP IN 3 MONTHS. PATIENT HAS EXPRESSED UNDERSTANDING OF AND WAS IN AGREEMENT WITH TREATMENT PLAN. GIVEN TIME ASKED QUESTIONS AND EXPRESS CONCERNS. ISTOP REGISTRY REVIEWED AND DEMONSTRATES COMPLLIANCE. (REF # [id number] ) BRINGS IN MEDICATIONS WHICH IS APPROPRIATE FOR WHAT WAS DISPENSED. RECENT URINE TOXICOLOGY REVIEWED. NO UNAUTHORIZED MEDICATIONS. NO ILLICIT SUBSTANCES AND PRESCRIBED MEDICATIONS WERE PRESENT. PROCEDURE CODES [id number] ESTABILISHED PATIENT [facility] CHARGE DISPOSITION & COMMUNICATION FOLLOW UP 3 MONTHS (REASON: KNEE PAIN) ELECTRONICALLY SIGNED BY FALGUNI BARR ON 09/10/2020 AT 08:26 AM EDT DISCLAIMER : THIS IS A VISIT SUMMARY EXTRACTED FROM THE [employer] CHART. IT IS NOT A COPY OF THE [employer] PROGRESS NOTE. TOÑITO
== END ==
LOC: M PAIN 09:00
PROVIDERS: ATTEND Family Medicine
DX: M25.562 Pain in left knee (principal); G89.29 Other chronic pain; E11.9 Type 2 diabetes mellitus without complications; Z96.651 Presence of right artificial knee joint; Z87.891 Personal history of nicotine dependence; Z88.8 Allergy status to other drugs, medicaments and biological substances; E66.01 Morbid (severe) obesity due to excess calories; Z68.42 Body mass index [BMI] 45.0-49.9, adult; Z79.4 Long term (current) use of insulin; Z79.899 Other long term (current) drug therapy

== ENCOUNTER → 2020-09-30 | Outpatient (CLI) | payer MEDICARE, OTHER ==
[2020-09-30 15:19] LABS: BASO # 0.1 10^3/uL (0.0-0.2); BASO % 0.9 % (0.0-1.0); EOS # 0.2 10^3/uL (0.0-0.5); EOS % 3.3 % (0.0-3.0); HEMATOCRIT 42.2 % (42.0-52.0); HEMOGLOBIN 13.5 g/dl (13.5-17.5); LYMPH # 1.4 10^3/uL (1.5-5.0); LYMPH % 24.8 % (24.0-44.0); MEAN CORPUSCULAR HEMOGLOBIN 25.9 pg (27.0-33.0); MONO # 0.5 10^3/uL (0.0-0.8); MONO % 9.4 % (2.0-8.0); NEUTROPHILS # 3.5 10^3/uL (1.5-8.5); NEUTROPHILS % 61.3 % (36.0-66.0); PLATELET COUNT, AUTOMATED 230 10^3/uL (150-450); RED BLOOD COUNT 5.21 10^6/uL (4.30-6.10); WHITE BLOOD COUNT 5.8 10^3/uL (4.0-10.0)
[2020-09-30 15:46] LABS: BLOOD UREA NITROGEN 14 MG/DL (7-18); CARBON DIOXIDE LEVEL 26 MEQ/L (21-32); CHLORIDE LEVEL 110 MEQ/L (98-107); CREATININE FOR GFR 0.97 MG/DL (0.70-1.30); GLOMERULAR FILTRATION RATE > 60.0 (>56); GLUCOSE, FASTING 163 MG/DL (70-100); POTASSIUM SERUM 4.6 MEQ/L (3.5-5.1); SODIUM LEVEL 144 MEQ/L (136-145)
[2020-09-30 15:47] LABS: ALT/SGPT 22 U/L (12-78); BILIRUBIN,TOTAL 0.3 MG/DL (0.2-1.0); C REACTIVE PROTEIN QUANTITATIV 1.28 MG/DL (0.00-0.30); CALCIUM LEVEL 9.4 MG/DL (8.5-10.1); TOTAL PROTEIN 7.4 GM/DL (6.4-8.2)
[2020-09-30 17:02] LABS: ERYTHROCYTE SEDIMENTATION RATE 15 mm/hr (0-20)
== END ==
LOC: M PLALAB 10:18
PROVIDERS: ATTEND Internal Medicine Infectious Disease
DX: M86.642 Other chronic osteomyelitis, left hand (principal)

== ENCOUNTER → 2020-10-30 | Outpatient (REF) | payer OTHER | LOC: M LAB REF 16:51 | PROVIDERS: ATTEND Internal Medicine | DX: M86.462 Chronic osteomyelitis with draining sinus, left tibia and fibula (principal) ==

== ENCOUNTER → 2020-11-03 | Outpatient (CLI) | payer OTHER ==
[2020-11-03 13:36] LABS: BASO # 0.1 10^3/uL (0.0-0.2); BASO % 1.2 % (0.0-1.0); EOS # 0.2 10^3/uL (0.0-0.5); EOS % 2.4 % (0.0-3.0); HEMATOCRIT 40.3 % (42.0-52.0); HEMOGLOBIN 13.1 g/dl (13.5-17.5); LYMPH # 1.8 10^3/uL (1.5-5.0); LYMPH % 26.4 % (24.0-44.0); MEAN CORPUSCULAR HEMOGLOBIN 26.1 pg (27.0-33.0); MEAN CORPUSCULAR HGB CONC 32.5 g/dl (32.0-36.5); MEAN CORPUSCULAR VOLUME 80.3 fl (80.0-96.0); MONO # 0.6 10^3/uL (0.0-0.8); MONO % 8.7 % (2.0-8.0); NEUTROPHILS # 4.1 10^3/uL (1.5-8.5); NEUTROPHILS % 60.4 % (36.0-66.0); PLATELET COUNT, AUTOMATED 270 10^3/uL (150-450); RED BLOOD COUNT 5.02 10^6/uL (4.30-6.10); WHITE BLOOD COUNT 6.8 10^3/uL (4.0-10.0)
[2020-11-03 14:06] LABS: BLOOD UREA NITROGEN 16 MG/DL (7-18); C REACTIVE PROTEIN QUANTITATIV 0.64 MG/DL (0.00-0.30); CALCIUM LEVEL 9.3 MG/DL (8.5-10.1); CARBON DIOXIDE LEVEL 26 MEQ/L (21-32); CHLORIDE LEVEL 109 MEQ/L (98-107); CREATININE FOR GFR 0.87 MG/DL (0.70-1.30); GLOMERULAR FILTRATION RATE > 60.0 (>56); GLUCOSE, FASTING 182 MG/DL (70-100); POTASSIUM SERUM 4.8 MEQ/L (3.5-5.1); SODIUM LEVEL 141 MEQ/L (136-145)
[2020-11-03 14:11] LABS: ERYTHROCYTE SEDIMENTATION RATE 11 mm/hr (0-20)
== END ==
LOC: M PLALAB 11:04
PROVIDERS: ATTEND Internal Medicine Infectious Disease
DX: M86.462 Chronic osteomyelitis with draining sinus, left tibia and fibula (principal)

== ENCOUNTER → 2020-12-09 | Outpatient (CLI) | payer OTHER | LOC: M PAIN 09:30 | PROVIDERS: ATTEND Anesthesiology | DX: M25.562 Pain in left knee (principal); G89.29 Other chronic pain; E11.9 Type 2 diabetes mellitus without complications; Z87.891 Personal history of nicotine dependence; Z88.8 Allergy status to other drugs, medicaments and biological substances; E66.01 Morbid (severe) obesity due to excess calories; Z68.42 Body mass index [BMI] 45.0-49.9, adult; Z79.4 Long term (current) use of insulin; Z79.82 Long term (current) use of aspirin; Z79.899 Other long term (current) drug therapy ==

== ENCOUNTER → 2021-03-03 | Outpatient (CLI) | payer OTHER | LOC: M PAIN 13:45 | PROVIDERS: ATTEND Anesthesiology | DX: M25.562 Pain in left knee (principal); M79.2 Neuralgia and neuritis, unspecified; M25.572 Pain in left ankle and joints of left foot; G89.29 Other chronic pain; E11.9 Type 2 diabetes mellitus without complications; Z87.891 Personal history of nicotine dependence; Z88.8 Allergy status to other drugs, medicaments and biological substances; E66.01 Morbid (severe) obesity due to excess calories; Z68.42 Body mass index [BMI] 45.0-49.9, adult; Z79.4 Long term (current) use of insulin; Z79.82 Long term (current) use of aspirin; Z79.899 Other long term (current) drug therapy ==

== ENCOUNTER → 2021-04-22 | Outpatient (REF) | payer MEDICARE, OTHER | LOC: M LAB REF 16:19 | PROVIDERS: ATTEND Internal Medicine | DX: M25.572 Pain in left ankle and joints of left foot (principal) ==

== ENCOUNTER → 2021-05-26 | Outpatient (CLI) | payer MEDICARE | LOC: M PAIN 14:00 | PROVIDERS: ATTEND Anesthesiology | DX: M79.672 Pain in left foot (principal); G89.29 Other chronic pain; M79.2 Neuralgia and neuritis, unspecified; E11.9 Type 2 diabetes mellitus without complications; Z87.891 Personal history of nicotine dependence; Z88.8 Allergy status to other drugs, medicaments and biological substances; E66.01 Morbid (severe) obesity due to excess calories; Z68.42 Body mass index [BMI] 45.0-49.9, adult; Z79.4 Long term (current) use of insulin; Z79.82 Long term (current) use of aspirin; Z79.899 Other long term (current) drug therapy ==

== ENCOUNTER → 2021-08-06 | Outpatient (CLI) | payer MEDICARE | LOC: M LAB 12:28 | PROVIDERS: ATTEND Nurse Practitioner | DX: Z85.46 Personal history of malignant neoplasm of prostate (principal) ==

== ENCOUNTER → 2021-08-18 | Outpatient (CLI) | payer MEDICARE | LOC: M PAIN 14:15 | PROVIDERS: ATTEND Anesthesiology | DX: M79.672 Pain in left foot (principal); M79.2 Neuralgia and neuritis, unspecified; E11.9 Type 2 diabetes mellitus without complications; Z87.891 Personal history of nicotine dependence; Z88.8 Allergy status to other drugs, medicaments and biological substances; E66.01 Morbid (severe) obesity due to excess calories; Z68.42 Body mass index [BMI] 45.0-49.9, adult; Z79.4 Long term (current) use of insulin; Z79.82 Long term (current) use of aspirin; Z79.899 Other long term (current) drug therapy ==

== ENCOUNTER → 2021-11-11 | Outpatient (CLI) | payer MEDICARE | LOC: M PAIN 13:30 | PROVIDERS: ATTEND Anesthesiology | DX: M79.2 Neuralgia and neuritis, unspecified (principal); M79.605 Pain in left leg; G89.29 Other chronic pain; E11.9 Type 2 diabetes mellitus without complications; I10 Essential (primary) hypertension; Z87.891 Personal history of nicotine dependence; Z88.8 Allergy status to other drugs, medicaments and biological substances; E66.01 Morbid (severe) obesity due to excess calories; Z68.42 Body mass index [BMI] 45.0-49.9, adult; Z79.4 Long term (current) use of insulin; Z79.82 Long term (current) use of aspirin; Z79.899 Other long term (current) drug therapy ==

== ENCOUNTER → 2022-02-20 | Outpatient (CLI) | payer MEDICARE ==
[~2022-02-20] MED LIST changes: +ATOR40TA75 PO
== END ==
LOC: M LABSMTC 11:22
PROVIDERS: ATTEND Anesthesiology
DX: Z01.812 Encounter for preprocedural laboratory examination (principal); Z20.822 Contact with and (suspected) exposure to COVID-19

== ENCOUNTER 2022-02-23 11:17 | Day surgery (SDC) | payer MEDICARE ==
[~2022-02-23] VITALS: Ht 182.9 cm; Wt 122.8 kg
[~2022-02-23 11:17] MED LIST changes: +LIDOCAINE 2% 100MG/5ML SDV (FOR ANES.) As Ordered ONE; +NS 1,000 ML IV ONE; +propofoL 200 MG/20 ML VIAL As Ordered ONE
[2022-02-23 13:25] VITALS: BP 118/57
== END 2022-02-23 13:33 | disposition home or self-care (01) ==
LOC: M OPP 11:17
PROVIDERS: ATTEND Internal Medicine Gastroenterology
DX: Z12.11 Encounter for screening for malignant neoplasm of colon (principal); Z86.010 Personal history of colon polyps; D12.6 Benign neoplasm of colon, unspecified; K64.0 First degree hemorrhoids; K57.30 Diverticulosis of large intestine without perforation or abscess without bleeding; Z79.02 Long term (current) use of antithrombotics/antiplatelets; Z79.4 Long term (current) use of insulin; Z79.82 Long term (current) use of aspirin; Z79.891 Long term (current) use of opiate analgesic; Z88.1 Allergy status to other antibiotic agents; E11.9 Type 2 diabetes mellitus without complications; G47.30 Sleep apnea, unspecified; E78.00 Pure hypercholesterolemia, unspecified; Z87.891 Personal history of nicotine dependence; Z85.46 Personal history of malignant neoplasm of prostate

== ENCOUNTER 2022-07-13 13:43 | Outpatient (RCR) | payer MEDICARE, OTHER ==
[~2022-07-13 13:43] MED LIST changes: +ENAL1TAB52 PO; -ENAL20TA11 PO; +INSU100I6 SC; -LEVE1INJ5 SC; -LIDOCAINE 2% 100MG/5ML SDV (FOR ANES.) As Ordered ONE; -NS 1,000 ML IV ONE; -propofoL 200 MG/20 ML VIAL As Ordered ONE
== END 2022-08-10 ==
LOC: M PT 13:43
PROVIDERS: ATTEND Orthopaedic Surgery
DX: M17.31 Unilateral post-traumatic osteoarthritis, right knee (principal); M25.561 Pain in right knee; G89.29 Other chronic pain

== ENCOUNTER 2023-03-09 09:24 | Inpatient (IN) | payer OTHER ==
[~2023-03-09] VITALS: Ht 182.9 cm; Wt 122.5 kg
[~2023-03-09 09:24] MED LIST changes: +ASPIRIN 81MG ENTERIC TABLET PO SCH
[2023-03-09] MEDS ORDERED: ONDANSETRON 4MG TAB PO PRN (09:40)
[2023-03-09] MEDS ORDERED: MOM 30ML SUSPENSION UDC PO PRN (09:40)
[2023-03-09] MEDS ORDERED: MAALOX 30 ML SUSP *UDC PO PRN (09:40)
[2023-03-09] MEDS ORDERED: BISACODYL 10MG SUPP PR PRN (09:40)
[2023-03-09] MEDS ORDERED: SIMETHICONE 80MG CHEW TAB PO PRN (09:40)
[2023-03-09] MEDS ORDERED: MIRALAX *UNIT DOSE* 17GM PACKET PO PRN (09:40)
[2023-03-09] MEDS ORDERED: BISACODYL 5MG TAB PO PRN (09:40)
[2023-03-09 12:18] VITALS: BP 153/72; TEMP 97; O2SAT 96
[2023-03-09] MEDS ORDERED: MED REC IN PROGRESS XX SCH (12:35)
[2023-03-09] MEDS ORDERED: TOUJ1.2I SQ (12:43)
[2023-03-09] MEDS ORDERED: SEMA2PEN SQ (12:43)
[2023-03-09] MEDS ORDERED: oxyCODONE 5MG TAB PO PRN (12:45)
[2023-03-09] MEDS ORDERED: AMLO1TAB24 PO (12:46)
[2023-03-09] MEDS ORDERED: HOME MED LIST COMPLETE! XX SCH (12:55)
[2023-03-09] MEDS ORDERED: GLUCOSE 4GM CHEW TABLET PO PRN (12:55)
[2023-03-09] MEDS ORDERED: GLUCAGON INJ 1MG VIAL SC PRN (12:55)
[2023-03-09] MEDS ORDERED: DEXTROSE 50% 50ML SYRINGE IV PRN (12:55)
[2023-03-09 14:00] VITALS: BP 150/72; TEMP 97.1; O2SAT 96
[2023-03-09] MEDS: ENALAPRIL MALEATE 10 MG TAB PO SCH (14:33)
[2023-03-09] MEDS: ATORVASTATIN 20 MG TAB PO SCH (14:37)
[2023-03-09] MEDS: OMEPRAZOLE 20MG CAP PO SCH (14:37)
[2023-03-09] MEDS: ACETAMINOPHEN TAB 650MG DOSE (2X325MG) PO PRN (14:37)
[2023-03-09] MEDS: CYCLOBENZAPRINE 5MG TABLET PO SCH ×2 (14:37→21:37)
[2023-03-09] MEDS: CelecoXIB (CeleBREX) 100 MG CAP PO SCH (17:44)
[2023-03-09] MEDS: INSULIN LISPRO (NovoLOG) PER UNIT SC SCH ×2 (17:46→21:00)
[2023-03-09 20:40] VITALS: BP 131/67; TEMP 97.7; O2SAT 95
[2023-03-09] MEDS: DOCUSATE SODIUM 100MG CAPSULE PO SCH (21:00)
[2023-03-09] MEDS: LEVEMIR (INSULIN DETEMIR) 1 UNITS/0.01ML SC SCH (21:37)
[2023-03-09] MEDS: ASPIRIN 81MG ENTERIC TABLET PO SCH (21:37)
[2023-03-09] MEDS: oxyCODONE 5MG TAB PO PRN (21:38)
[2023-03-10 05:25] VITALS: BP 147/76; TEMP 96.7; O2SAT 94
[2023-03-10] MEDS: CYCLOBENZAPRINE 5MG TABLET PO SCH ×3 (05:35→21:09)
[2023-03-10 06:47] LABS: BASO # 0.1 10^3/uL (0.0-0.2); BASO % 0.7 % (0.0-1.0); EOS # 0.2 10^3/uL (0.0-0.5); EOS % 1.9 % (0.0-3.0); HEMATOCRIT 33.4 % (42.0-52.0); HEMOGLOBIN 10.7 g/dl (13.5-17.5); LYMPH # 1.5 10^3/uL (1.5-5.0); LYMPH % 16.8 % (24.0-44.0); MEAN CORPUSCULAR VOLUME 84.3 fl (80.0-96.0); MONO # 0.8 10^3/uL (0.0-0.8); MONO % 9.3 % (2.0-8.0); NEUTROPHILS # 6.4 10^3/uL (1.5-8.5); NEUTROPHILS % 70.9 % (36.0-66.0); PLATELET COUNT, AUTOMATED 351 10^3/uL (150-450); RED BLOOD COUNT 3.96 10^6/uL (4.30-6.10)
[2023-03-10 07:26] LABS: BLOOD UREA NITROGEN 15 MG/DL (9-23); CALCIUM LEVEL 8.4 MG/DL (8.3-10.6); CARBON DIOXIDE LEVEL 28 MMOL/L (20-31); CHLORIDE LEVEL 104 MMOL/L (98-107); GLOMERULAR FILTRATION RATE > 60.0 (>49); GLUCOSE, FASTING 170 MG/DL (74-106); POTASSIUM SERUM 5.1 MMOL/L (3.5-5.1); SODIUM LEVEL 138 MMOL/L (136-145)
[2023-03-10] MEDS: ENALAPRIL MALEATE 10 MG TAB PO SCH (07:28)
[2023-03-10] MEDS: DOCUSATE SODIUM 100MG CAPSULE PO SCH ×2 (07:28→21:09)
[2023-03-10] MEDS: ATORVASTATIN 20 MG TAB PO SCH (07:29)
[2023-03-10] MEDS: CelecoXIB (CeleBREX) 100 MG CAP PO SCH (07:29)
[2023-03-10] MEDS: metFORMIN (GLUCOPHAGE) 1000MG TABLET PO SCH (07:29)
[2023-03-10] MEDS: OMEPRAZOLE 20MG CAP PO SCH (07:29)
[2023-03-10] MEDS: INSULIN LISPRO (NovoLOG) PER UNIT SC SCH ×4 (07:30→21:00)
[2023-03-10] MEDS: ENOXAPARIN 40MG/0.4ML SYRINGE (J1650 PER 10MG) SC SCH (07:30)
[2023-03-10] MEDS: LEVEMIR (INSULIN DETEMIR) 1 UNITS/0.01ML SC SCH ×2 (07:31→21:10)
[2023-03-10] MEDS: oxyCODONE 5MG TAB PO PRN ×2 (10:57→17:03)
[2023-03-10 14:00] VITALS: BP 131/67; TEMP 97.9; O2SAT 99
[2023-03-10 20:32] VITALS: BP 133/80; TEMP 97.4; O2SAT 96
[2023-03-10] MEDS: ASPIRIN 81MG ENTERIC TABLET PO SCH (21:09)
[2023-03-11] MEDS: oxyCODONE 5MG TAB PO PRN ×4 (01:27→17:00)
[2023-03-11 06:14] VITALS: BP 171/78; TEMP 97.6; O2SAT 95
[2023-03-11] MEDS: CYCLOBENZAPRINE 5MG TABLET PO SCH ×3 (06:20→21:06)
[2023-03-11 06:29] VITALS: BP 160/78
[2023-03-11] MEDS: ENALAPRIL MALEATE 10 MG TAB PO SCH (08:16)
[2023-03-11] MEDS: OMEPRAZOLE 20MG CAP PO SCH (08:16)
[2023-03-11] MEDS: DOCUSATE SODIUM 100MG CAPSULE PO SCH ×2 (08:17→21:06)
[2023-03-11] MEDS: CelecoXIB (CeleBREX) 100 MG CAP PO SCH (08:17)
[2023-03-11] MEDS: ATORVASTATIN 20 MG TAB PO SCH (08:17)
[2023-03-11] MEDS: metFORMIN (GLUCOPHAGE) 1000MG TABLET PO SCH (08:17)
[2023-03-11] MEDS: ENOXAPARIN 40MG/0.4ML SYRINGE (J1650 PER 10MG) SC SCH (08:17)
[2023-03-11] MEDS: INSULIN LISPRO (NovoLOG) PER UNIT SC SCH ×4 (08:18→20:59)
[2023-03-11] MEDS: LEVEMIR (INSULIN DETEMIR) 1 UNITS/0.01ML SC SCH ×2 (08:18→21:06)
[2023-03-11] MEDS: ACETAMINOPHEN TAB 650MG DOSE (2X325MG) PO PRN (10:59)
[2023-03-11 14:00] VITALS: BP 136/70; TEMP 97.3; O2SAT 97
[2023-03-11 20:55] VITALS: BP 131/70; TEMP 97.6; O2SAT 93
[2023-03-11] MEDS: ASPIRIN 81MG ENTERIC TABLET PO SCH (21:06)
[2023-03-12] MEDS: oxyCODONE 5MG TAB PO PRN ×3 (02:49→17:05)
[2023-03-12] MEDS: CYCLOBENZAPRINE 5MG TABLET PO SCH ×3 (05:55→21:03)
[2023-03-12 06:00] VITALS: BP 136/77; TEMP 96.7; O2SAT 94
[2023-03-12 06:44] LABS: HEMATOCRIT 32.9 % (42.0-52.0); HEMOGLOBIN 10.5 g/dl (13.5-17.5); MEAN CORPUSCULAR HEMOGLOBIN 27.2 pg (27.0-33.0); MEAN CORPUSCULAR HGB CONC 31.9 g/dl (32.0-36.5); MEAN CORPUSCULAR VOLUME 85.2 fl (80.0-96.0); PLATELET COUNT, AUTOMATED 402 10^3/uL (150-450); RED BLOOD COUNT 3.86 10^6/uL (4.30-6.10); WHITE BLOOD COUNT 8.3 10^3/uL (4.0-10.0)
[2023-03-12] MEDS: ENOXAPARIN 40MG/0.4ML SYRINGE (J1650 PER 10MG) SC SCH (07:41)
[2023-03-12] MEDS: OMEPRAZOLE 20MG CAP PO SCH (07:42)
[2023-03-12] MEDS: ATORVASTATIN 20 MG TAB PO SCH (07:42)
[2023-03-12] MEDS: DOCUSATE SODIUM 100MG CAPSULE PO SCH ×2 (07:42→21:02)
[2023-03-12] MEDS: LEVEMIR (INSULIN DETEMIR) 1 UNITS/0.01ML SC SCH ×2 (07:42→21:02)
[2023-03-12] MEDS: INSULIN LISPRO (NovoLOG) PER UNIT SC SCH ×4 (07:42→20:01)
[2023-03-12] MEDS: CelecoXIB (CeleBREX) 100 MG CAP PO SCH (07:43)
[2023-03-12] MEDS: ENALAPRIL MALEATE 10 MG TAB PO SCH (07:43)
[2023-03-12] MEDS: metFORMIN (GLUCOPHAGE) 1000MG TABLET PO SCH (07:43)
[2023-03-12] MEDS: ACETAMINOPHEN TAB 650MG DOSE (2X325MG) PO PRN ×2 (11:55→21:02)
[2023-03-12 16:00] VITALS: BP 144/74; TEMP 97.5; O2SAT 99
[2023-03-12 20:00] VITALS: BP 148/71; TEMP 97.2; O2SAT 98
[2023-03-12] MEDS: ASPIRIN 81MG ENTERIC TABLET PO SCH (21:02)
[2023-03-13] MEDS: oxyCODONE 5MG TAB PO PRN ×3 (02:14→21:05)
[2023-03-13] MEDS: ACETAMINOPHEN TAB 650MG DOSE (2X325MG) PO PRN ×2 (05:43→14:01)
[2023-03-13] MEDS: CYCLOBENZAPRINE 5MG TABLET PO SCH ×3 (05:43→21:04)
[2023-03-13 06:00] VITALS: BP 142/88; TEMP 97.3; O2SAT 99
[2023-03-13] MEDS: metFORMIN (GLUCOPHAGE) 1000MG TABLET PO SCH (09:00)
[2023-03-13] MEDS: CelecoXIB (CeleBREX) 100 MG CAP PO SCH (09:01)
[2023-03-13] MEDS: ATORVASTATIN 20 MG TAB PO SCH (09:01)
[2023-03-13] MEDS: ENALAPRIL MALEATE 10 MG TAB PO SCH (09:01)
[2023-03-13] MEDS: DOCUSATE SODIUM 100MG CAPSULE PO SCH ×2 (09:01→21:04)
[2023-03-13] MEDS: OMEPRAZOLE 20MG CAP PO SCH (09:01)
[2023-03-13] MEDS: ENOXAPARIN 40MG/0.4ML SYRINGE (J1650 PER 10MG) SC SCH (09:02)
[2023-03-13] MEDS: INSULIN LISPRO (NovoLOG) PER UNIT SC SCH ×4 (09:02→21:03)
[2023-03-13] MEDS: LEVEMIR (INSULIN DETEMIR) 1 UNITS/0.01ML SC SCH ×2 (09:02→21:04)
[2023-03-13 14:00] VITALS: BP 136/74; TEMP 96.6; O2SAT 96
[2023-03-13 20:00] VITALS: BP 146/69; TEMP 97.1; O2SAT 97
[2023-03-13] MEDS: ASPIRIN 81MG ENTERIC TABLET PO SCH (21:04)
[2023-03-14] MEDS: ACETAMINOPHEN TAB 650MG DOSE (2X325MG) PO PRN ×2 (04:46→12:45)
[2023-03-14] MEDS: CYCLOBENZAPRINE 5MG TABLET PO SCH ×3 (05:03→21:00)
[2023-03-14 06:00] VITALS: BP 131/76; TEMP 97.2; O2SAT 96
[2023-03-14] MEDS: ENALAPRIL MALEATE 10 MG TAB PO SCH (09:01)
[2023-03-14] MEDS: ENOXAPARIN 40MG/0.4ML SYRINGE (J1650 PER 10MG) SC SCH (09:01)
[2023-03-14] MEDS: DOCUSATE SODIUM 100MG CAPSULE PO SCH ×2 (09:01→21:00)
[2023-03-14] MEDS: CelecoXIB (CeleBREX) 100 MG CAP PO SCH (09:01)
[2023-03-14] MEDS: ATORVASTATIN 20 MG TAB PO SCH (09:02)
[2023-03-14] MEDS: oxyCODONE 5MG TAB PO PRN ×2 (09:02→21:01)
[2023-03-14] MEDS: metFORMIN (GLUCOPHAGE) 1000MG TABLET PO SCH (09:02)
[2023-03-14] MEDS: LEVEMIR (INSULIN DETEMIR) 1 UNITS/0.01ML SC SCH ×2 (09:02→21:00)
[2023-03-14] MEDS: OMEPRAZOLE 20MG CAP PO SCH (09:02)
[2023-03-14] MEDS: INSULIN LISPRO (NovoLOG) PER UNIT SC SCH ×4 (09:03→20:14)
[2023-03-14 14:00] VITALS: BP 105/72; TEMP 98.2; O2SAT 97
[2023-03-14] MEDS ORDERED: methocarbamoL 500 MG TAB PO PRN (14:55)
[2023-03-14 20:00] VITALS: BP 139/65; TEMP 98.1; O2SAT 96
[2023-03-14] MEDS: ASPIRIN 81MG ENTERIC TABLET PO SCH (21:00)
[2023-03-15] MEDS: ACETAMINOPHEN TAB 650MG DOSE (2X325MG) PO PRN ×2 (06:12→13:18)
[2023-03-15] MEDS: CYCLOBENZAPRINE 5MG TABLET PO SCH ×3 (06:13→20:03)
[2023-03-15 06:14] VITALS: BP 140/81; TEMP 98; O2SAT 96
[2023-03-15 06:33] LABS: HEMATOCRIT 35.4 % (42.0-52.0); HEMOGLOBIN 11.4 g/dl (13.5-17.5); MEAN CORPUSCULAR HEMOGLOBIN 27.1 pg (27.0-33.0); MEAN CORPUSCULAR HGB CONC 32.2 g/dl (32.0-36.5); MEAN CORPUSCULAR VOLUME 84.1 fl (80.0-96.0); PLATELET COUNT, AUTOMATED 414 10^3/uL (150-450); RED BLOOD COUNT 4.21 10^6/uL (4.30-6.10); WHITE BLOOD COUNT 8.5 10^3/uL (4.0-10.0)
[2023-03-15 06:55] LABS: BLOOD UREA NITROGEN 17 MG/DL (9-23); CALCIUM LEVEL 8.9 MG/DL (8.3-10.6); CARBON DIOXIDE LEVEL 32 MMOL/L (20-31); CHLORIDE LEVEL 102 MMOL/L (98-107); CREATININE FOR GFR 0.74 MG/DL (0.70-1.30); GLOMERULAR FILTRATION RATE > 60.0 (>49); GLUCOSE, FASTING 196 MG/DL (74-106); POTASSIUM SERUM 5.2 MMOL/L (3.5-5.1); SODIUM LEVEL 136 MMOL/L (136-145)
[2023-03-15] MEDS: metFORMIN (GLUCOPHAGE) 1000MG TABLET PO SCH (07:34)
[2023-03-15] MEDS: INSULIN LISPRO (NovoLOG) PER UNIT SC SCH ×4 (07:36→19:28)
[2023-03-15] MEDS: oxyCODONE 5MG TAB PO PRN (07:37)
[2023-03-15] MEDS: ENALAPRIL MALEATE 10 MG TAB PO SCH (07:47)
[2023-03-15] MEDS: ENOXAPARIN 40MG/0.4ML SYRINGE (J1650 PER 10MG) SC SCH (07:47)
[2023-03-15] MEDS: OMEPRAZOLE 20MG CAP PO SCH (07:47)
[2023-03-15] MEDS: CelecoXIB (CeleBREX) 100 MG CAP PO SCH (07:48)
[2023-03-15] MEDS: DOCUSATE SODIUM 100MG CAPSULE PO SCH ×2 (07:48→20:03)
[2023-03-15] MEDS: ATORVASTATIN 20 MG TAB PO SCH (07:48)
[2023-03-15] MEDS: LEVEMIR (INSULIN DETEMIR) 1 UNITS/0.01ML SC SCH ×2 (07:49→20:04)
[2023-03-15 12:27] LABS: HEMOGLOBIN A1c 6.1 % (4.0-6.0)
[2023-03-15 14:00] VITALS: BP 128/63; TEMP 97; O2SAT 97
[2023-03-15 20:00] VITALS: BP 137/69; TEMP 97.5; O2SAT 99
[2023-03-15] MEDS: ASPIRIN 81MG ENTERIC TABLET PO SCH (20:03)
[2023-03-16] MEDS: oxyCODONE 5MG TAB PO PRN (01:54)
[2023-03-16] MEDS: CYCLOBENZAPRINE 5MG TABLET PO SCH ×2 (05:37→14:46)
[2023-03-16 06:00] VITALS: BP 137/75; TEMP 97.3; O2SAT 96
[2023-03-16] MEDS: CelecoXIB (CeleBREX) 100 MG CAP PO SCH (08:19)
[2023-03-16] MEDS: DOCUSATE SODIUM 100MG CAPSULE PO SCH (08:19)
[2023-03-16] MEDS: metFORMIN (GLUCOPHAGE) 1000MG TABLET PO SCH (08:20)
[2023-03-16] MEDS: OMEPRAZOLE 20MG CAP PO SCH (08:20)
[2023-03-16] MEDS: ATORVASTATIN 20 MG TAB PO SCH (08:20)
[2023-03-16 08:21] VITALS: BP 137/75
[2023-03-16] MEDS: ACETAMINOPHEN TAB 650MG DOSE (2X325MG) PO PRN ×2 (08:21→14:46)
[2023-03-16] MEDS: ENALAPRIL MALEATE 10 MG TAB PO SCH (08:21)
[2023-03-16] MEDS: LEVEMIR (INSULIN DETEMIR) 1 UNITS/0.01ML SC SCH (08:22)
[2023-03-16] MEDS: INSULIN LISPRO (NovoLOG) PER UNIT SC SCH ×3 (08:22→17:35)
[2023-03-16] MEDS: ENOXAPARIN 40MG/0.4ML SYRINGE (J1650 PER 10MG) SC SCH (08:23)
[2023-03-16] MEDS ORDERED: NARC1SPR (11:58)
[2023-03-16] MEDS ORDERED: OXYC-517 PO (11:58)
[2023-03-16] MEDS ORDERED: CELE100C PO (11:58)
[2023-03-16] MEDS ORDERED: CYCL5TAB PO (11:58)
[2023-03-16] MEDS ORDERED: INSUH10VL SC (11:58)
[2023-03-16] MEDS ORDERED: TOUJ1.2I SQ (11:58)
[2023-03-16 14:22] VITALS: BP 140/76; TEMP 97.5; O2SAT 98
== END 2023-03-16 19:55 | disposition home or self-care (01) | DRG 351 ==
LOC: M PM&R 12:15
PROVIDERS: ADMIT Physical Medicine & Rehabilitation; ATTEND Student in an Organized Health Care Education/Training Program
DX: M25.561 Pain in right knee (principal); Z96.653 Presence of artificial knee joint, bilateral; E11.65 Type 2 diabetes mellitus with hyperglycemia; I10 Essential (primary) hypertension; E78.5 Hyperlipidemia, unspecified; E66.9 Obesity, unspecified; Z74.1 Need for assistance with personal care; G47.33 Obstructive sleep apnea (adult) (pediatric); K21.9 Gastro-esophageal reflux disease without esophagitis; Z74.09 Other reduced mobility; Z90.49 Acquired absence of other specified parts of digestive tract; Z90.79 Acquired absence of other genital organ(s); Z85.46 Personal history of malignant neoplasm of prostate; Z79.82 Long term (current) use of aspirin; Z79.4 Long term (current) use of insulin; Z79.84 Long term (current) use of oral hypoglycemic drugs; Z79.899 Other long term (current) drug therapy; Z88.1 Allergy status to other antibiotic agents; Z47.1 Aftercare following joint replacement surgery

== ENCOUNTER 2023-04-07 13:08 | Outpatient (RCR) | payer OTHER ==
[~2023-04-07 13:08] MED LIST changes: +AMLO1TAB24 PO; -ASPIRIN 81MG ENTERIC TABLET PO SCH; +CELE100C PO; +CYCL5TAB PO; +NARC1SPR; +OXYC-517 PO; +SEMA2PEN SQ; +TOUJ1.2I SQ
== END 2023-04-12 ==
LOC: M PT 13:08
PROVIDERS: ATTEND Student in an Organized Health Care Education/Training Program
DX: Z96.651 Presence of right artificial knee joint (principal)
CPT/HCPCS: 97010; 97110; 97140; 97161; G0283

== ENCOUNTER 2023-05-09 13:28 | Outpatient (RCR) | payer OTHER ==
[~2023-05-09 13:28] MED LIST changes: -ASPI-161 PO; +ASPI-615 PO
== END 2023-05-11 ==
LOC: M PT 13:28
PROVIDERS: ATTEND Student in an Organized Health Care Education/Training Program
DX: Z96.651 Presence of right artificial knee joint (principal)

== ENCOUNTER 2023-06-06 14:14 | Outpatient (RCR) | payer OTHER | END 2023-06-11 | LOC: M PT 14:14 | PROVIDERS: ATTEND Student in an Organized Health Care Education/Training Program | DX: Z96.651 Presence of right artificial knee joint (principal) ==

== ENCOUNTER → 2023-07-11 | Outpatient (RCR) | payer OTHER | LOC: M PT 06-14 14:16 | PROVIDERS: ATTEND Student in an Organized Health Care Education/Training Program | DX: Z96.651 Presence of right artificial knee joint (principal) ==

== ENCOUNTER 2023-07-28 14:15 | Outpatient (RCR) | payer OTHER | END 2023-08-11 | LOC: M PT 14:15 | PROVIDERS: ATTEND Student in an Organized Health Care Education/Training Program | DX: Z96.651 Presence of right artificial knee joint (principal) ==

== ENCOUNTER → 2023-12-01 | Outpatient (CLI) | payer OTHER ==
[~2023-12-01] MED LIST changes: +SEMA1PEN2 SQ; +TOUJ1.2I SC; +TRAM50TA2
== END ==
LOC: M ONCR 09:55
PROVIDERS: ATTEND General Practice
DX: C61 Malignant neoplasm of prostate (principal); R97.20 Elevated prostate specific antigen [PSA]; R53.83 Other fatigue; Z79.1 Long term (current) use of non-steroidal anti-inflammatories (NSAID); Z79.4 Long term (current) use of insulin; Z79.84 Long term (current) use of oral hypoglycemic drugs; Z79.85 Long-term (current) use of injectable non-insulin antidiabetic drugs; Z79.899 Other long term (current) drug therapy; Z88.1 Allergy status to other antibiotic agents

== ENCOUNTER 2023-12-22 10:11 | Outpatient (RCR) | payer OTHER | END 2024-01-11 | LOC: M ONCR 10:11 | PROVIDERS: ATTEND General Practice | DX: Z51.0 Encounter for antineoplastic radiation therapy (principal); C61 Malignant neoplasm of prostate ==

== ENCOUNTER 2024-02-07 09:02 | Outpatient (RCR) | payer OTHER ==
[~2024-02-07 09:02] MED LIST changes: -CYCL5TAB PO; +CYCL5TAB4 PO
== END 2024-02-10 ==
LOC: M ONCR 09:02
PROVIDERS: ATTEND General Practice
DX: Z51.0 Encounter for antineoplastic radiation therapy (principal); C61 Malignant neoplasm of prostate

== ENCOUNTER → 2024-03-12 | Outpatient (RCR) | payer OTHER ==
[2024-03-11 10:41] LABS: APPEARANCE, URINE CLEAR (CLEAR); BACTERIA, URINE AUTO NEGATIVE (NEGATIVE); BILIRUBIN, URINE AUTO NEGATIVE (NEGATIVE); BLOOD, URINE BLOOD NEGATIVE (NEGATIVE); COLOR, URINE YELLOW (YELLOW); GLUCOSE, URINE (UA) AUTO NEGATIVE (NEGATIVE); KETONE, URINE AUTO NEGATIVE (NEGATIVE); LEUKOCYTE ESTERASE, URINE AUTO NEGATIVE (NEGATIVE); MUCUS, URINE SMALL (NEGATIVE); NITRITE, URINE AUTO NEGATIVE (NEGATIVE); PROTEIN, URINE AUTO 1+ mg/dL (NEGATIVE); RBC, URINE AUTO 0 /HPF (0-3); SPECIFIC GRAVITY URINE AUTO 1.028 (1.002-1.035); SQUAMOUS EPITHELIAL CELL UR AU 0 /HPF (0-6); UROBILINOGEN, URINE AUTO 0.2 mg/dL (0.0-2.0); WBC, URINE AUTO 1 /HPF (0-3)
[~2024-03-12] MED LIST changes: +OXYB-54 PO
== END ==
LOC: M ONCR 02-12 08:58
PROVIDERS: ATTEND General Practice
DX: Z51.0 Encounter for antineoplastic radiation therapy (principal); C61 Malignant neoplasm of prostate

== ENCOUNTER → 2024-05-07 | Outpatient (REF) | payer OTHER ==
[2024-05-08 16:03] LABS: ATYPICAL LYMPH 1 % (0-5); BASOPHILS 1 % (0-1); EOSINOPHILS 22 % (0-3); LYMPHOCYTES 9 % (16-44); MONOCYTES 9 % (0-5); NEUTROPHILS 58 % (28-66); PLATELET CLUMPS MODERATE AMT
[2024-05-08 16:05] LABS: OVALOCYTES 1+; TEAR DROP CELLS 2+
[2024-05-08 16:06] LABS: HELMET CELLS 1+; POIKILOCYTOSIS 1+
[2024-05-08 16:07] LABS: PLATELET ESTIMATE INVALID (NORMAL)
== END ==
LOC: M LAB REF 12:33
PROVIDERS: ATTEND Internal Medicine
DX: D72.9 Disorder of white blood cells, unspecified (principal)

== ENCOUNTER 2024-09-25 18:37 | Inpatient (IN) | payer OTHER ==
[~2024-09-25] VITALS: Ht 182.9 cm; Wt 117.5 kg
[~2024-09-25 18:37] MED LIST changes: -PRAV80TA2 PO; +PRAV80TA75 PO; -TRAM50TA2
[2024-09-25 19:31] LABS: BASO # 0.0 10^3/uL (0.0-0.2); BASO % 0.5 % (0.0-1.0); EOS # 0.3 10^3/uL (0.0-0.5); EOS % 4.0 % (0.0-3.0); LYMPH # 0.8 10^3/uL (1.5-5.0); LYMPH % 10.2 % (24.0-44.0); MONO # 0.6 10^3/uL (0.0-0.8); MONO % 8.4 % (2.0-8.0); NEUTROPHILS # 5.8 10^3/uL (1.5-8.5); NEUTROPHILS % 76.2 % (36.0-66.0); PLATELET COUNT, AUTOMATED 270 10^3/uL (150-450)
[2024-09-25 19:37] LABS: ETHYL ALCOHOL (ETHANOL) < 0.003 % (0.000-0.010); INR 1.04
[2024-09-25] MEDS: ONDANSETRON 4MG 2ML VIAL IV ONE (19:37)
[2024-09-25] MEDS: BOOSTRIX VACCINE (TETANUS/DIPHTH/ACEL. PERTUSSIS) 0.5 ML SYR IM ONE (19:38)
[2024-09-25] MEDS: cefTRIAXone SOD 2 GM in DEXTROSE 5% (D5W) ADV/MINI-BAG 50 ML IV ONE (19:38)
[2024-09-25 19:39] LABS: CALCIUM LEVEL 8.8 MG/DL (8.3-10.6); CARBON DIOXIDE LEVEL 25 MMOL/L (20-31); CHLORIDE LEVEL 100 MMOL/L (98-107); CREATININE FOR GFR 1.13 MG/DL (0.70-1.30); GLOMERULAR FILTRATION RATE 73.5 (>49); POTASSIUM SERUM 3.8 MMOL/L (3.5-5.1); SODIUM LEVEL 141 MMOL/L (136-145)
[2024-09-25] MEDS: MORPHINE 4 MG/ML 1 ML VIAL IV PRN ×2 (19:39→21:23)
[2024-09-25] MEDS ORDERED: AMIT10TA11 PO (20:27)
[2024-09-25] MEDS ORDERED: HOME MED LIST COMPLETE! XX SCH (20:30)
[2024-09-25] MEDS ORDERED: DEXTROSE 50% 50 ML SYRINGE IV PRN ×2 (20:50→21:15)
[2024-09-25] MEDS ORDERED: ONDANSETRON 4MG 2ML VIAL IV PRN (20:50)
[2024-09-25] MEDS ORDERED: MOM 30 ML SUSPENSION UDC PO PRN (20:50)
[2024-09-25] MEDS ORDERED: GLUCOSE 4 GM CHEW PO PRN ×2 (20:50→21:15)
[2024-09-25] MEDS ORDERED: GLUCAGON INJ 1 MG VIAL SC PRN ×2 (20:50→21:15)
[2024-09-25] MEDS: INSULIN LISPRO (NovoLOG) PER UNIT SC SCH (21:00)
[2024-09-25] MEDS: ATORVASTATIN 20 MG TAB PO SCH (21:45)
[2024-09-25] MEDS: DOCUSATE SODIUM 100 MG CAPSULE PO SCH (21:45)
[2024-09-25] MEDS: AMITRIPTYLINE 10 MG TABLET PO SCH (21:46)
[2024-09-25] MEDS: traMADol 50 MG TAB PO SCH (21:47)
[2024-09-25] MEDS: LR 1,000 ML IV SCH (21:49)
[2024-09-25] MEDS: KETOROLAC 30 MG/ML 1 ML VIAL IV SCH (23:51)
[2024-09-26] VITALS (8 sets, daily range): BP systolic 134–169; BP diastolic 63–85; TEMP 97.5–98.1; O2SAT 92–97
[2024-09-26 05:45] LABS: BASO # 0.0 10^3/uL (0.0-0.2); BASO % 0.5 % (0.0-1.0); EOS # 0.0 10^3/uL (0.0-0.5); EOS % 0.2 % (0.0-3.0); LYMPH # 0.7 10^3/uL (1.5-5.0); LYMPH % 10.2 % (24.0-44.0); MONO # 0.8 10^3/uL (0.0-0.8); MONO % 12.5 % (2.0-8.0); NEUTROPHILS # 5.0 10^3/uL (1.5-8.5); NEUTROPHILS % 76.4 % (36.0-66.0); PLATELET COUNT, AUTOMATED 241 10^3/uL (150-450)
[2024-09-26 06:07] LABS: CALCIUM LEVEL 8.6 MG/DL (8.3-10.6); CARBON DIOXIDE LEVEL 28.0 MMOL/L (20-31); CHLORIDE LEVEL 102.0 MMOL/L (98-107); CREATININE FOR GFR 1.11 MG/DL (0.70-1.30); GLOMERULAR FILTRATION RATE 75.1 (>49); POTASSIUM SERUM 4.2 MMOL/L (3.5-5.1); SODIUM LEVEL 141.0 MMOL/L (136-145)
[2024-09-26] MEDS ORDERED: MIDAZOLAM INJ 2 MG/2 ML VIAL As Ordered ONE (07:19)
[2024-09-26] MEDS ORDERED: dexAMETHasone 4 MG/ML 1 ML VIAL As Ordered ONE (07:20)
[2024-09-26] MEDS ORDERED: ONDANSETRON 4MG 2ML VIAL As Ordered ONE (07:20)
[2024-09-26] MEDS ORDERED: LIDOCAINE 2% 100 MG/5 ML SDV (FOR ANES.) As Ordered ONE (07:20)
[2024-09-26] MEDS ORDERED: ACETAMINOPHEN 1000MG/100ML IV BAG As Ordered ONE (07:21)
[2024-09-26] MEDS: INSULIN LISPRO (NovoLOG) PER UNIT SC SCH (07:30)
[2024-09-26] MEDS ORDERED: PHENYLephrine 500MCG 5ML (100MCG/ML) SYRINGE As Ordered ONE (08:03)
[2024-09-26] MEDS: LIDOCAINE 1% SDV 30 ML VIAL As Ordered ONE (08:24)
[2024-09-26] MEDS: HYDROMORPHONE HCL 0.5 MG/0.5 ML SYRINGE IV PRN (10:40)
[2024-09-26] MEDS: LanTUS (INSULIN GLARGINE INJ) 1 UNITS/0.01 ML SC SCH ×2 (11:05→20:59)
[2024-09-26] MEDS: LIDOCAINE 1% SDV 5 ML VIAL PN ONE (11:15)
[2024-09-26] MEDS: ROPIvacaine 0.5% 30ML VIAL PN ONE (11:15)
[2024-09-26] MEDS ORDERED: LIDOCAINE 1% SDV 5 ML VIAL As Ordered ONE (11:18)
[2024-09-26] MEDS: amLODIPine 5 MG TAB PO SCH (13:02)
[2024-09-26] MEDS: ceFAZolin SODIUM 2 GM in DEXTROSE 5% (D5W) ADV/MINI-BAG 50 ML IV SCH (14:49)
[2024-09-26] MEDS: ACETAMINOPHEN 325 MG TAB PO PRN (14:50)
[2024-09-27] VITALS: BP 154/86; TEMP 98.1; O2SAT 95
[2024-09-27 04:03] VITALS: BP 126/75; TEMP 97.9; O2SAT 97
[2024-09-27 05:43] VITALS: BP 149/85; TEMP 97.9; O2SAT 94
[2024-09-27 06:05] LABS: BASO # 0.0 10^3/uL (0.0-0.2); BASO % 0.6 % (0.0-1.0); EOS # 0.0 10^3/uL (0.0-0.5); EOS % 0.0 % (0.0-3.0); LYMPH # 0.5 10^3/uL (1.5-5.0); LYMPH % 9.6 % (24.0-44.0); MONO # 0.6 10^3/uL (0.0-0.8); MONO % 11.0 % (2.0-8.0); NEUTROPHILS # 4.1 10^3/uL (1.5-8.5); NEUTROPHILS % 78.6 % (36.0-66.0); PLATELET COUNT, AUTOMATED 198 10^3/uL (150-450)
[2024-09-27 06:12] LABS: CALCIUM LEVEL 8.0 MG/DL (8.3-10.6); CARBON DIOXIDE LEVEL 27.0 MMOL/L (20-31); CHLORIDE LEVEL 104.0 MMOL/L (98-107); CREATININE FOR GFR 0.96 MG/DL (0.70-1.30); GLOMERULAR FILTRATION RATE 89.4 (>49); POTASSIUM SERUM 4.3 MMOL/L (3.5-5.1); SODIUM LEVEL 142.0 MMOL/L (136-145)
[2024-09-27 08:52] VITALS: BP 158/85
[2024-09-27] MEDS ORDERED: ACET-897 PO (11:02)
[2024-09-27] MEDS ORDERED: IBUP-1022 PO (11:02)
[2024-09-27] MEDS ORDERED: BAYE325T16 PO (11:05)
[2024-09-27 11:38] VITALS: BP 159/72; TEMP 98.1; O2SAT 95
== END 2024-09-27 12:09 | disposition home or self-care (01) | DRG 313 ==
LOC: M ED 18:37 → EDBD 18:37 → M ED INP 20:47 → M MSPAV 09-26 12:04
PROVIDERS: ADMIT Internal Medicine Nephrology; ATTEND Internal Medicine Nephrology
PROC: 0QSH04Z Reposition Left Tibia with Internal Fixation Device, Open Approach (ICD-10-PCS; principal; 2024-09-26 07:30)
DX: S82.852B Displaced trimalleolar fracture of left lower leg, initial encounter for open fracture type I or II (principal); I10 Essential (primary) hypertension; V27.49XA Other motorcycle driver injured in collision with fixed or stationary object in traffic accident, initial encounter; E66.9 Obesity, unspecified; E11.9 Type 2 diabetes mellitus without complications; M19.072 Primary osteoarthritis, left ankle and foot; G47.33 Obstructive sleep apnea (adult) (pediatric); E78.5 Hyperlipidemia, unspecified; Z85.46 Personal history of malignant neoplasm of prostate; Z92.3 Personal history of irradiation; Z96.653 Presence of artificial knee joint, bilateral; Z90.49 Acquired absence of other specified parts of digestive tract; Z79.4 Long term (current) use of insulin; Z79.84 Long term (current) use of oral hypoglycemic drugs; Z79.899 Other long term (current) drug therapy; Z88.1 Allergy status to other antibiotic agents

== ENCOUNTER → 2024-10-09 | Outpatient (CLI) | payer OTHER ==
[~2024-10-09] MED LIST changes: +ACET-897 PO; +AMIT10TA11 PO; +BAYE325T16 PO; +IBUP-1022 PO
== END ==
LOC: M SOG 10:19
PROVIDERS: ATTEND Neuromusculoskeletal Medicine, Sports Medicine
DX: M25.572 Pain in left ankle and joints of left foot (principal); Z98.890 Other specified postprocedural states

== ENCOUNTER → 2024-10-25 | Outpatient (CLI) | payer OTHER ==
[~2024-10-25] MED LIST changes: -IBUP-1022 PO; +IBUP600T42 PO
== END ==
LOC: M SOG 06:56
PROVIDERS: ATTEND Physician Assistant
DX: M25.572 Pain in left ankle and joints of left foot (principal); M77.32 Calcaneal spur, left foot; Z98.890 Other specified postprocedural states

== ENCOUNTER → 2024-11-06 | Outpatient (CLI) | payer OTHER | LOC: M SOG 06:51 | PROVIDERS: ATTEND Orthopaedic Surgery | DX: M25.572 Pain in left ankle and joints of left foot (principal) ==

== ENCOUNTER → 2024-12-11 | Outpatient (CLI) | payer OTHER | LOC: M SOG 07:29 | PROVIDERS: ATTEND Physician Assistant | DX: M25.572 Pain in left ankle and joints of left foot (principal) ==

== ENCOUNTER → 2025-01-01 | Outpatient (CLI) | payer OTHER | LOC: M SOG 07:32 | PROVIDERS: ATTEND Physician Assistant | DX: S82.852E Displaced trimalleolar fracture of left lower leg, subsequent encounter for open fracture type I or II with routine healing (principal); M25.572 Pain in left ankle and joints of left foot ==

== ENCOUNTER → 2025-02-28 | Outpatient (CLI) | payer OTHER | LOC: M SOG 11:42 | PROVIDERS: ATTEND Orthopaedic Surgery | DX: S91.002A Unspecified open wound, left ankle, initial encounter (principal); Y93.9 Activity, unspecified; Y92.9 Unspecified place or not applicable ==